=== PATIENT | female | born 1970 | race Caucasian/White ===

== ENCOUNTER → 2016-10-30 | Outpatient (CLI) | payer BC ==
[~2016-10-30] MED LIST: BACITAB3 PO; BIOT10005 PO; CALCTAB7 PO; CARD120C3 PO; COCO1000 PO; CYCL5TA PO; HYOS0.374 PO; IRON1TAB PO; MAXA10TA14 PO; PROT1TAB2 PO; RANTIDINE PO; VITA200016 PO; ZOFR20TA PO
== END ==
LOC: M LAB 10-27 14:26
PROVIDERS: ATTEND Internal Medicine Gastroenterology
DX: K58.0 Irritable bowel syndrome with diarrhea (principal)

== ENCOUNTER 2016-11-18 10:25 | Emergency (ER) | payer BC ==
--- NOTE | 2016-11-18 11:10 | EDDOCDS ---
Nurse's Notes [facility] Name: Ramona Payan Age: 46 yrs Sex: Female : 1970 Arrival Date: 11/18/2016 Time: 10:25 Bed TR1 Private MD: Carrie Davidson D Diagnosis: Left sided colitis with rectal bleeding;Enterocolitis due to Clostridium difficile Presentation: 11/18 10:31 Presenting complaint: Patient states: rectal bleeding with clots yesterday,no bleeding [facility] or today. history of sigmoid colitis, finished course of antibiotic on Tuesday for C-Diff. Adult Sepsis Screening: The patient does not have new or worsening altered mentation. Patient's respiratory rate is less than 22. Systolic blood pressure is greater than 100. Patient has a qSOFA score of 0- Negative Sepsis Screen. Suicide/Homicide risk assessment- the patient denies having any suicidal and/or homicidal ideations and does not present with any other emotional, behavioral or mental health complaints. Status: Patient is not a track service person or dependent. Transition of care: patient was not received from another setting of care. 10:31 Acuity: JENNIFER Level 3 [facility] 10:31 Method Of Arrival: Walkin/Carried/Asstd [facility] Triage Assessment: 10:39 General: Appears in no apparent distress, Behavior is appropriate for age. Pain: [facility] Location: abdomen Pain currently is 4 out of 10 on a pain scale. HIV screening NA for this visit Offered previously. Neurological: Level of Consciousness is awake, alert, Oriented to person, place, time. Respiratory: Airway is patent Respiratory effort is even, unlabored, Respiratory pattern is regular, symmetrical. GI: Reports bloody stools lower abdominal pain, upper abdominal pain, Pain is 4 out of 10 on a pain scale. Derm: Skin is pink, warm & dry. 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 Bacid 1 billion-250 cell-mg oral tab twice a day (Last dose: 11/18/2016 07:00) 2. biotin 10,000 mcg oral cap 1 tab twice a day (Last dose: 11/18/2016 07:00) 3. Calcium + Vitamin D Oral 200 mg twice a day (Last dose: 11/18/2016 07:00) 4. Colace 100 mg oral cap 1 cap once daily (Last dose: 11/18/2016 07:00) 5. cyclobenzaprine 5 mg Oral tab 1 tab 3 times per day as needed (Last dose: Unknown) 6. Excedrin Migraine 250-250-65 mg Oral tab 2 tab as needed (Last dose: Unknown) 7. Vitamin D Oral 2000 units twice a day (Last dose: 11/18/2016 07:00) 8. hyoscyamine sulfate 0.125 mg oral tab 1 tab every 6 hours as needed (Last dose: 11/17/2016) 9. ondansetron HCl 4 mg Oral tab every 4 hours as needed (Last dose: Unknown) 10. Maxalt 10 mg oral tab 1 tab as needed (Last dose: Unknown) 11. Zoloft 25 mg Oral tab 1 tab once daily (Last dose: 11/18/2016 07:00) 12. hydrocodone-acetaminophen 5-325 mg Oral tab 1 tab every 4 hours as needed (Last dose: 11/18/2016 00:30) - PMHx: GERD; Hiatal Hernia; Hypertension; IBS; Migraine Headaches; - PSHx: Colonoscopy; Endoscopy, Upper; Tubal ligation; - Social history: Smoking status: Patient states was never smoker of tobacco. No barriers to communication noted, The patient speaks fluent Azeri. - Family history: Not pertinent. - : The pt / caregiver states he / she is not on anticoagulants. Home medication list is obtained from the patient. - Exposure Risk Screening:: None identified. Recent exposure to finished antibiotic for C-Diff on Tuesday. Screenin:06 Screening information is obtained from the patient. Fall risk: No risks identified. [facility] Assistance ADL's: requires no assistance with activities of daily living. Abuse/DV Screen: The patient / caregiver reports he/she is: not in a situation that causes fear, pain or injury. Nutritional screening: No deficits noted. Advance Directives: Currently, there is no health care proxy. There is no active DNR order. There is no living will. There is no Power of Shaper And Presser. Advance directive information has not previously been placed in an [facility] medical record. Further advance directive information is declined. home support is adequate. Assessment: 11:06 General: Appears in no apparent distress, well nourished, well groomed, Behavior is kpj appropriate for age, pleasant. Pain: Location: abdomen Pain currently is 4 out of 10 on a pain scale. Neurological: Level of Consciousness is awake, alert, Oriented to person, place, time. EENT: Oral mucosa is moist. Respiratory: Airway is patent Respiratory effort is even, unlabored, Respiratory pattern is regular, symmetrical, Breath sounds are clear bilaterally. GI: Abdomen is non- distended Bowel sounds present X 4 quads. Abd is soft X 4 quads Abd is tender to palpation in right upper quadrant, left upper quadrant, right lower quadrant and left lower quadrant Reports bloody stools lower abdominal pain, upper abdominal pain, Pain is 4 out of 10 on a pain scale. Derm: Skin is pink, warm & dry. Vital Signs: 10:27 BP 159 / 84; Pulse 72; Resp 16; Temp 99.0(O); Pulse Ox 100% on R/A; Weight 88.9 kg (R); elp Height 5 ft. 2 in. (157.48 cm) (R); Pain 3/10; 10:27 Body Mass Index 35.85 (88.90 kg, 157.48 cm) elp Vitals: 10:27 Log In Time: November 18, 2016 at 10:25. elp ED Course: 10:27 Patient visited by Maria Luz Hansen PCA. elp 10:27 Carrie Davidson is Private Physician. elp 10:27 Patient moved to Waiting elp 10:28 Patient visited by Maria Luz Hansen PCA. elp 10:28 Patient moved to Pre RCE elp 10:33 Triage Initiated kpj 10:42 Patient moved to Triage 2 kpj 10:44 [facility] Breen [facility] btw 10:44 Magnolia Mendez MD is Attending Physician. btw 10:45 Patient visited by Raulito Breen PA. btw 10:58 Carrie Davidson is Referral Physician. btw 11:06 No apparent distress. kpj 11:06 Patient moved to TR1 kp 11:06 The patient / caregiver is instructed regarding the plan of care and ED course. Patient [facility] has correct armband on for positive identification. 11:06 No IV's were initiated during this patient's visit. No procedures done that require kpj assistance. Order Results: There are currently no results for this order. Outcome: 10:58 Discharge ordered by Provider. btw 11:06 Discharge Assessment: Patient awake, alert and oriented x 3. No cognitive and/or kpj functional deficits noted. Patient verbalized understanding of disposition instructions. patient administered narcotics - no. The following High Risk Discharge criteria are identified: None. Discharged to home ambulatory. Condition: stable. Discharge instructions given to patient, Instructed on discharge instructions, follow up and referral plans. medication usage, Demonstrated understanding of instructions, medications, Pt was receptive of discharge instructions/ teaching. Prescriptions given X 2. No special radiology studies were completed. Property sent home with patient. 11:09 Patient left the ED. [facility] Signatures: Steffany Patton RN RN Raulito Araujo PA PA btMaria Luz Luciano, ARABELLA BELL elp NELSON
--- NOTE | 2016-11-18 11:10 | EDDOCDS ---
Physician Documentation [facility] Name: Ramona Payan Age: 46 yrs Sex: Female : 1970 Arrival Date: 11/18/2016 Time: 10:25 Bed TR1 Private MD: Carrie Davidson D Disposition: 11/18/16 10:58 Discharged to Home/Self Care. Impression: Left sided colitis with rectal bleeding, Enterocolitis due to Clostridium difficile. - Condition is Stable. - Discharge Instructions: Clostridium Difficile Infection, Gastrointestinal Bleeding, [id number]. - Prescriptions for Medrol (Daniel) 4 mg Oral Tablets, Dose Pack - take 1 Pack by ORAL route as directed - follow package instructions; 1 packet. vancomycin 50mg/ml Oral Suspension - take 250 milligram by ORAL route 2 times per day for 2 weeks; 140 milliliter. - Medication Reconciliation, Local Pharmacy Hours form. - Follow up: Carrie Davidson; When: Call to arrange an appointment; Reason: Further diagnostic work-up, Recheck today's complaints, Continuance of care. - Problem is an ongoing problem. - Symptoms are unchanged. Historical: - Allergies: Latex (Rash, Red burning); Bupropion (Vomit); - Home Meds: 1. Bacid 1 billion-250 cell-mg oral tab twice a day (Last dose: 11/18/2016 07:00) 2. biotin 10,000 mcg oral cap 1 tab twice a day (Last dose: 11/18/2016 07:00) 3. Calcium + Vitamin D Oral 200 mg twice a day (Last dose: 11/18/2016 07:00) 4. Colace 100 mg oral cap 1 cap once daily (Last dose: 11/18/2016 07:00) 5. cyclobenzaprine 5 mg Oral tab 1 tab 3 times per day as needed (Last dose: Unknown) 6. Excedrin Migraine 250-250-65 mg Oral tab 2 tab as needed (Last dose: Unknown) 7. Vitamin D Oral 2000 units twice a day (Last dose: 11/18/2016 07:00) 8. hyoscyamine sulfate 0.125 mg oral tab 1 tab every 6 hours as needed (Last dose: 11/17/2016) 9. ondansetron HCl 4 mg Oral tab every 4 hours as needed (Last dose: Unknown) 10. Maxalt 10 mg oral tab 1 tab as needed (Last dose: Unknown) 11. Zoloft 25 mg Oral tab 1 tab once daily (Last dose: 11/18/2016 07:00) 12. hydrocodone-acetaminophen 5-325 mg Oral tab 1 tab every 4 hours as needed (Last dose: 11/18/2016 00:30) - PMHx: GERD; Hiatal Hernia; Hypertension; IBS; Migraine Headaches; - PSHx: Colonoscopy; Endoscopy, Upper; Tubal ligation; - Social history: Smoking status: Patient states was never smoker of tobacco. No barriers to communication noted, The patient speaks fluent Pakistani. - Family history: Not pertinent. - : The pt / caregiver states he / she is not on anticoagulants. Home medication list is obtained from the patient. - Exposure Risk Screening:: None identified. Recent exposure to finished antibiotic for C-Diff on Tuesday. 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 2 in. (157.48 cm) (R); Pain 3/10; 10:27 Body Mass Index 35.85 (88.90 kg, 157.48 cm) elp Signatures: Steffany Patton RN RN j Raulito Breen PA PA btw MTDD
--- NOTE | 2016-11-20 12:10 | EDDOCDS ---
Nurse's Notes [facility] Name: Ramona Payan Age: 46 yrs Sex: Female : 1970 Arrival Date: 11/18/2016 Time: 10:25 Bed TR1 Private MD: Carrie Davidson D Diagnosis: Left sided colitis with rectal bleeding;Enterocolitis due to Clostridium difficile Presentation: 11/18 10:31 Presenting complaint: Patient states: rectal bleeding with clots yesterday,no bleeding [facility] or today. history of sigmoid colitis, finished course of antibiotic on Tuesday for C-Diff. Adult Sepsis Screening: The patient does not have new or worsening altered mentation. Patient's respiratory rate is less than 22. Systolic blood pressure is greater than 100. Patient has a qSOFA score of 0- Negative Sepsis Screen. Suicide/Homicide risk assessment- the patient denies having any suicidal and/or homicidal ideations and does not present with any other emotional, behavioral or mental health complaints. Status: Patient is not a services tech or dependent. Transition of care: patient was not received from another setting of care. 10:31 Acuity: JENNIFER Level 3 [facility] 10:31 Method Of Arrival: Walkin/Carried/Asstd [facility] Triage Assessment: 10:39 General: Appears in no apparent distress, Behavior is appropriate for age. Pain: [facility] Location: abdomen Pain currently is 4 out of 10 on a pain scale. HIV screening NA for this visit Offered previously. Neurological: Level of Consciousness is awake, alert, Oriented to person, place, time. Respiratory: Airway is patent Respiratory effort is even, unlabored, Respiratory pattern is regular, symmetrical. GI: Reports bloody stools lower abdominal pain, upper abdominal pain, Pain is 4 out of 10 on a pain scale. Derm: Skin is pink, warm & dry. 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 Bacid 1 billion-250 cell-mg oral tab twice a day (Last dose: 11/18/2016 07:00) 2. biotin 10,000 mcg oral cap 1 tab twice a day (Last dose: 11/18/2016 07:00) 3. Calcium + Vitamin D Oral 200 mg twice a day (Last dose: 11/18/2016 07:00) 4. Colace 100 mg oral cap 1 cap once daily (Last dose: 11/18/2016 07:00) 5. cyclobenzaprine 5 mg Oral tab 1 tab 3 times per day as needed (Last dose: Unknown) 6. Excedrin Migraine 250-250-65 mg Oral tab 2 tab as needed (Last dose: Unknown) 7. Vitamin D Oral 2000 units twice a day (Last dose: 11/18/2016 07:00) 8. hyoscyamine sulfate 0.125 mg oral tab 1 tab every 6 hours as needed (Last dose: 11/17/2016) 9. ondansetron HCl 4 mg Oral tab every 4 hours as needed (Last dose: Unknown) 10. Maxalt 10 mg oral tab 1 tab as needed (Last dose: Unknown) 11. Zoloft 25 mg Oral tab 1 tab once daily (Last dose: 11/18/2016 07:00) 12. hydrocodone-acetaminophen 5-325 mg Oral tab 1 tab every 4 hours as needed (Last dose: 11/18/2016 00:30) - PMHx: GERD; Hiatal Hernia; Hypertension; IBS; Migraine Headaches; - PSHx: Colonoscopy; Endoscopy, Upper; Tubal ligation; - Social history: Smoking status: Patient states was never smoker of tobacco. No barriers to communication noted, The patient speaks fluent Welsh. - Family history: Not pertinent. - : The pt / caregiver states he / she is not on anticoagulants. Home medication list is obtained from the patient. - Exposure Risk Screening:: None identified. Recent exposure to finished antibiotic for C-Diff on Tuesday. Screenin:06 Screening information is obtained from the patient. Fall risk: No risks identified. [facility] Assistance ADL's: requires no assistance with activities of daily living. Abuse/DV Screen: The patient / caregiver reports he/she is: not in a situation that causes fear, pain or injury. Nutritional screening: No deficits noted. Advance Directives: Currently, there is no health care proxy. There is no active DNR order. There is no living will. There is no Power of Assistant City Attorney. Advance directive information has not previously been placed [facility] an [facility] record. Further advance directive information is declined. home support is adequate. Assessment: 11:06 General: Appears in no apparent distress, well nourished, well groomed, Behavior is kpj appropriate for age, pleasant. Pain: Location: abdomen Pain currently is 4 out of 10 on a pain scale. Neurological: Level of Consciousness is awake, alert, Oriented to person, place, time. EENT: Oral mucosa is moist. Respiratory: Airway is patent Respiratory effort is even, unlabored, Respiratory pattern is regular, symmetrical, Breath sounds are clear bilaterally. GI: Abdomen is non- distended Bowel sounds present X 4 quads. Abd is soft X 4 quads Abd is tender to palpation in right upper quadrant, left upper quadrant, right lower quadrant and left lower quadrant Reports bloody stools lower abdominal pain, upper abdominal pain, Pain is 4 out of 10 on a pain scale. Derm: Skin is pink, warm & dry. Vital Signs: 10:27 BP 159 / 84; Pulse 72; Resp 16; Temp 99.0(O); Pulse Ox 100% on R/A; Weight 88.9 kg (R); elp Height 5 ft. 2 in. (157.48 cm) (R); Pain 3/10; 10:27 Body Mass Index 35.85 (88.90 kg, 157.48 cm) elp Vitals: 10:27 Log In Time: November 18, 2016 at 10:25. elp ED Course: 10:27 Patient visited by Maria Luz Hansen PCA. elp 10:27 Carrie Davidson is Private Physician. elp 10:27 Patient moved to Waiting elp 10:28 Patient visited by Maria Luz Hansen PCA. elp 10:28 Patient moved to Pre RCE elp 10:33 Triage Initiated kpj 10:42 Patient moved to Triage 2 kpj 10:44 Raulito Breen PA is [facility]. btw 10:44 Magnolia Mendez MD is Attending Physician. btw 10:45 Patient visited by Raulito Breen PA. btw 10:58 Carrie Davidson is Referral Physician. btw 11:06 No apparent distress. kpj 11:06 Patient moved to TR1 kp 11:06 The patient / caregiver is instructed regarding the plan of care and ED course. Patient [facility] has correct armband on for positive identification. 11:06 No IV's were initiated during this patient's visit. No procedures done that require kpj assistance. 11:18 [facility] Payment Agreement was scanned into [employer] and attached to record. lg 14:43 T-Sheet-- Draft Copy was scanned into [employer] and attached to record. gb Order Results: There are currently no results for this order. Outcome: 10:58 Discharge ordered by Provider. btw 11:06 Discharge Assessment: Patient awake, alert and oriented x 3. No cognitive and/or kpj functional deficits noted. Patient verbalized understanding of disposition instructions. patient administered narcotics - no. The following High Risk Discharge criteria are identified: None. Discharged to home ambulatory. Condition: stable. Discharge instructions given to patient, Instructed on discharge instructions, follow up and referral plans. medication usage, Demonstrated understanding of instructions, medications, Pt was receptive of discharge instructions/ teaching. Prescriptions given X 2. No special radiology studies were completed. Property sent home with patient. 11:09 Patient left the ED. [facility] Signatures: Steffany Patton RN RN [facility] Soco Wang, Reg Reg gb Amy Knight, Reg Reg lg Raulito Breen PA PA btw Maria Luz Hansen, BEAN SNIPPER BEAN SNIPPER elp Chart Complete MTDD
--- NOTE | 2016-11-20 12:10 | EDDOCDS ---
Physician Documentation [facility] Name: Ramona Payan Age: 46 yrs Sex: Female : 1970 Arrival Date: 11/18/2016 Time: 10:25 Bed TR1 Private MD: Carrie Davidson D Disposition: 11/18/16 10:58 Discharged to Home/Self Care. Impression: Left sided colitis with rectal bleeding, Enterocolitis due to Clostridium difficile. - Condition is Stable. - Discharge Instructions: Clostridium Difficile Infection, Gastrointestinal Bleeding, [id number]. - Prescriptions for Medrol (Daniel) 4 mg Oral Tablets, Dose Pack - take 1 Pack by ORAL route as directed - follow package instructions; 1 packet. vancomycin 50mg/ml Oral Suspension - take 250 milligram by ORAL route 2 times per day for 2 weeks; 140 milliliter. - Medication Reconciliation, Local Pharmacy Hours form. - Follow up: Carrie Davidson; When: Call to arrange an appointment; Reason: Further diagnostic work-up, Recheck today's complaints, Continuance of care. - Problem is an ongoing problem. - Symptoms are unchanged. Historical: - Allergies: Latex (Rash, Red burning); Bupropion (Vomit); - Home Meds: 1. Bacid 1 billion-250 cell-mg oral tab twice a day (Last dose: 11/18/2016 07:00) 2. biotin 10,000 mcg oral cap 1 tab twice a day (Last dose: 11/18/2016 07:00) 3. Calcium + Vitamin D Oral 200 mg twice a day (Last dose: 11/18/2016 07:00) 4. Colace 100 mg oral cap 1 cap once daily (Last dose: 11/18/2016 07:00) 5. cyclobenzaprine 5 mg Oral tab 1 tab 3 times per day as needed (Last dose: Unknown) 6. Excedrin Migraine 250-250-65 mg Oral tab 2 tab as needed (Last dose: Unknown) 7. Vitamin D Oral 2000 units twice a day (Last dose: 11/18/2016 07:00) 8. hyoscyamine sulfate 0.125 mg oral tab 1 tab every 6 hours as needed (Last dose: 11/17/2016) 9. ondansetron HCl 4 mg Oral tab every 4 hours as needed (Last dose: Unknown) 10. Maxalt 10 mg oral tab 1 tab as needed (Last dose: Unknown) 11. Zoloft 25 mg Oral tab 1 tab once daily (Last dose: 11/18/2016 07:00) 12. hydrocodone-acetaminophen 5-325 mg Oral tab 1 tab every 4 hours as needed (Last dose: 11/18/2016 00:30) - PMHx: GERD; Hiatal Hernia; Hypertension; IBS; Migraine Headaches; - PSHx: Colonoscopy; Endoscopy, Upper; Tubal ligation; - Social history: Smoking status: Patient states was never smoker of tobacco. No barriers to communication noted, The patient speaks fluent Surinamese. - Family history: Not pertinent. - : The pt / caregiver states he / she is not on anticoagulants. Home medication list is obtained from the patient. - Exposure Risk Screening:: None identified. Recent exposure to finished antibiotic for C-Diff on Tuesday. 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 2 in. (157.48 cm) (R); Pain 3/10; 10:27 Body Mass Index 35.85 (88.90 kg, 157.48 cm) elp MDM: 11:18 [facility] Payment Agreement was scanned into [employer] and attached to record. lg 14:43 T-Sheet-- Draft Copy was scanned into [employer] and attached to record. gb Signatures: Steffany Patton RN RN [facility] Soco Wang, Reg Reg gb Amy Knight, Reg Reg lg Raulito Breen PA PA btw The chart was reviewed and I authenticate all verbal orders and agree with the evaluation and treatment provided.Attachments: 11:18 [facility] Payment Agreement lg 14:43 T-Sheet-- Draft Copy gb Chart Complete MTDD
--- NOTE | 2016-11-20 12:10 | EDDOCDS ---
Physician Documentation [facility] Name: Ramona Payan Age: 46 yrs Sex: Female : 1970 Arrival Date: 11/18/2016 Time: 10:25 Bed TR1 Private MD: Carrie Davidson D Disposition: 11/18/16 10:58 Discharged to Home/Self Care. Impression: Left sided colitis with rectal bleeding, Enterocolitis due to Clostridium difficile. - Condition is Stable. - Discharge Instructions: Clostridium Difficile Infection, Gastrointestinal Bleeding, [id number]. - Prescriptions for Medrol (Daniel) 4 mg Oral Tablets, Dose Pack - take 1 Pack by ORAL route as directed - follow package instructions; 1 packet. vancomycin 50mg/ml Oral Suspension - take 250 milligram by ORAL route 2 times per day for 2 weeks; 140 milliliter. - Medication Reconciliation, Local Pharmacy Hours form. - Follow up: Carrie Davidson; When: Call to arrange an appointment; Reason: Further diagnostic work-up, Recheck today's complaints, Continuance of care. - Problem is an ongoing problem. - Symptoms are unchanged. Historical: - Allergies: Latex (Rash, Red burning); Bupropion (Vomit); - Home Meds: 1. Bacid 1 billion-250 cell-mg oral tab twice a day (Last dose: 11/18/2016 07:00) 2. biotin 10,000 mcg oral cap 1 tab twice a day (Last dose: 11/18/2016 07:00) 3. Calcium + Vitamin D Oral 200 mg twice a day (Last dose: 11/18/2016 07:00) 4. Colace 100 mg oral cap 1 cap once daily (Last dose: 11/18/2016 07:00) 5. cyclobenzaprine 5 mg Oral tab 1 tab 3 times per day as needed (Last dose: Unknown) 6. Excedrin Migraine 250-250-65 mg Oral tab 2 tab as needed (Last dose: Unknown) 7. Vitamin D Oral 2000 units twice a day (Last dose: 11/18/2016 07:00) 8. hyoscyamine sulfate 0.125 mg oral tab 1 tab every 6 hours as needed (Last dose: 11/17/2016) 9. ondansetron HCl 4 mg Oral tab every 4 hours as needed (Last dose: Unknown) 10. Maxalt 10 mg oral tab 1 tab as needed (Last dose: Unknown) 11. Zoloft 25 mg Oral tab 1 tab once daily (Last dose: 11/18/2016 07:00) 12. hydrocodone-acetaminophen 5-325 mg Oral tab 1 tab every 4 hours as needed (Last dose: 11/18/2016 00:30) - PMHx: GERD; Hiatal Hernia; Hypertension; IBS; Migraine Headaches; - PSHx: Colonoscopy; Endoscopy, Upper; Tubal ligation; - Social history: Smoking status: Patient states was never smoker of tobacco. No barriers to communication noted, The patient speaks fluent Serbian. - Family history: Not pertinent. - : The pt / caregiver states he / she is not on anticoagulants. Home medication list is obtained from the patient. - Exposure Risk Screening:: None identified. Recent exposure to finished antibiotic for C-Diff on Tuesday. 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 2 in. (157.48 cm) (R); Pain 3/10; 10:27 Body Mass Index 35.85 (88.90 kg, 157.48 cm) elp MDM: 11:18 [facility] Payment Agreement was scanned into [employer] and attached to record. lg 14:43 T-Sheet-- Draft Copy was scanned into [employer] and attached to record. gb Signatures: Steffany Patton RN RN [facility] Soco Wang, Reg Reg gb Amy Knight, Reg Reg lg Raulito Breen PA PA btw The chart was reviewed and I authenticate all verbal orders and agree with the evaluation and treatment provided.Attachments: 11:18 [facility] Payment Agreement lg 14:43 T-Sheet-- Draft Copy gb Chart Complete MTDD
== END 2016-11-18 11:09 | disposition home or self-care (01) ==
LOC: M ED 10:25
DX: A04.7 Enterocolitis due to Clostridium difficile (principal); K62.5 Hemorrhage of anus and rectum; I10 Essential (primary) hypertension; G43.909 Migraine, unspecified, not intractable, without status migrainosus; K58.9 Irritable bowel syndrome, unspecified; K21.9 Gastro-esophageal reflux disease without esophagitis; K44.9 Diaphragmatic hernia without obstruction or gangrene; Z79.899 Other long term (current) drug therapy; Z91.040 Latex allergy status; Z88.8 Allergy status to other drugs, medicaments and biological substances

== ENCOUNTER → 2016-11-18 | Outpatient (REF) | payer BC | LOC: M LAB REF 10:24 | PROVIDERS: ATTEND Internal Medicine Gastroenterology | DX: A04.7 Enterocolitis due to Clostridium difficile (principal) ==

== ENCOUNTER → 2016-12-02 | Outpatient (CLI) | payer BC ==
[2016-12-08 00:15] LABS: DQ2(DQ1A 0501/0505,DQB1 02XX) Negative (.); DQ8(DQA1 03XX, DQB1 0302) Negative (.)
== END ==
LOC: M LAB 08:12
PROVIDERS: ATTEND Nurse Practitioner Family
DX: A04.7 Enterocolitis due to Clostridium difficile (principal); K21.9 Gastro-esophageal reflux disease without esophagitis; K58.2 Mixed irritable bowel syndrome

== ENCOUNTER → 2016-12-03 | Outpatient (REF) | payer BC | LOC: M SFHCPLAZ 13:59 | PROVIDERS: ATTEND Nurse Practitioner Family | DX: K21.9 Gastro-esophageal reflux disease without esophagitis (principal) ==

== ENCOUNTER → 2016-12-20 | Outpatient (CLI) | payer BC ==
[~2016-12-20] VITALS: Ht 157.5 cm; Wt 88.9 kg
[~2016-12-20] MED LIST changes: +DEXI60CA PO; +LIDOCAINE 2% INJ 100 MG/5 ML SDV (FOR ANES.) As Ordered ONE; +METOCLOPRAMIDE INJ 10MG/2ML VIAL (J2765) As Ordered ONE; +NS 1,000 ML IV SCH; +ONDANSETRON 4MG/2ML VIAL (J2405) As Ordered ONE; +PROPOFOL 200 MG/20 ML VIAL As Ordered ONE; +SERT25TA85 PO; +SUCR1TA PO
--- NOTE | 2016-12-20 14:20 | ROOR ---
Patient Name: Ramona Payan Procedure Date: 12/20/2016 2:05 PM Date of : 1970 Age: 46 Room: [facility] Gender: Female Note Status: Finalized Procedure: Upper GI endoscopy Indications: Heartburn, Suspected esophageal reflux, Failure to respond to medical treatment, Chest pain (non cardiac) Providers: Daniel BETHEA MD Referring MD: Carrie Davidson NP Requesting Provider: Medicines: Monitored Anesthesia Care Complications: No immediate complications. Procedure: Pre-Anesthesia Assessment: - The heart rate, respiratory rate, oxygen saturations, blood pressure, adequacy of pulmonary ventilation, and response to care were monitored throughout the procedure. The Endoscope was introduced through the mouth, and advanced to the second part of duodenum. The upper GI endoscopy was accomplished without difficulty. The patient tolerated the procedure well. Findings: The examined esophagus was normal. This was biopsied with a cold forceps for evaluation of eosinophilic esophagitis. The entire examined stomach was normal. The examined duodenum was normal. This was biopsied with a cold forceps for histology. Impression: - Normal esophagus. Biopsied. - Normal stomach. - Normal examined duodenum. Biopsied. Recommendation: - Continue present medications. - Telephone endoscopist for pathology results in 2 weeks. Daniel Bethea MD Daniel BETHEA MD 12/20/2016 2:19:58 PM This report has been signed electronically. Number of Addenda: 0 Note Initiated On: 12/20/2016 2:05 PM Estimated Blood Loss: Estimated blood loss: none.
--- NOTE | 2016-12-20 14:41 | ROOR ---
Patient Name: Ramona Payan Procedure Date: 12/20/2016 2:05 PM Date of : 1970 Age: 46 Room: [facility] Gender: Female Note Status: Finalized Procedure: Colonoscopy Indications: Abnormal CT of the GI tract, Suspected irritable bowel syndrome, Diarrhea, Hx C difficile (?colonisation vs colitis) in past. Irregular bowels persist. Abnormal CT suggestive of sigmoid coilitis, Lactoferrin in stool Providers: Daniel BETHEA MD Referring MD: Carrie Davidson NP Requesting Provider: Medicines: Monitored Anesthesia Care Complications: No immediate complications. Procedure: Pre-Anesthesia Assessment: - The heart rate, respiratory rate, oxygen saturations, blood pressure, adequacy of pulmonary ventilation, and response to care were monitored throughout the procedure. The Colonoscope was introduced through the anus and advanced to 6 cm into the ileum. The colonoscopy was performed without difficulty. The patient tolerated the procedure well. The quality of the bowel preparation was good. Findings: The perianal and digital rectal examinations were normal. The mucosa vascular pattern in the sigmoid colon was decreased. Biopsies were taken with a cold forceps for histology. The exam was otherwise normal throughout the examined colon. Biopsies for histology were taken with a cold forceps from the entire colon for evaluation of microscopic colitis. The terminal ileum appeared normal. Fluid aspiration was performed through the scope suction channel. Sample(s) were sent for Clostridium difficile. Impression: - The colon was essentially normal in appearance, there is somewhat decreased mucosa vascular pattern in the sigmoid colon (dubious significance). Biopsied. - The examined portion of the ileum was normal. - Colon fluid aspiration performed for C difficile testing - Biopsies were taken with a cold forceps from the entire colon for evaluation of microscopic colitis. Recommendation: - Await pathology results. - Telephone endoscopist for pathology results in 2 weeks. Daniel Bethea MD Daniel BETHEA MD 12/20/2016 2:40:56 PM This report has been signed electronically. Number of Addenda: 0 Note Initiated On: 12/20/2016 2:05 PM Estimated Blood Loss: Estimated blood loss: none.
[2016-12-20 15:00] VITALS: BP 125/7
== END | disposition home or self-care (01) ==
LOC: M OPP 11:12
PROVIDERS: ATTEND Internal Medicine Gastroenterology
DX: R93.3 Abnormal findings on diagnostic imaging of other parts of digestive tract (principal); R19.7 Diarrhea, unspecified; R12 Heartburn; R07.89 Other chest pain; K58.0 Irritable bowel syndrome with diarrhea; K63.89 Other specified diseases of intestine; K59.00 Constipation, unspecified; M19.012 Primary osteoarthritis, left shoulder; G47.30 Sleep apnea, unspecified; R06.83 Snoring; K21.9 Gastro-esophageal reflux disease without esophagitis; G43.909 Migraine, unspecified, not intractable, without status migrainosus; Z88.8 Allergy status to other drugs, medicaments and biological substances; Z91.040 Latex allergy status; Z79.899 Other long term (current) drug therapy; Z80.3 Family history of malignant neoplasm of breast; Z80.49 Family history of malignant neoplasm of other genital organs; Z80.8 Family history of malignant neoplasm of other organs or systems
CPT/HCPCS: 43239; 45380; 88305; 99156; 99157; J2405

== ENCOUNTER → 2016-12-21 | Outpatient (CLI) | payer BC ==
[~2016-12-21] MED LIST changes: -LIDOCAINE 2% INJ 100 MG/5 ML SDV (FOR ANES.) As Ordered ONE; -METOCLOPRAMIDE INJ 10MG/2ML VIAL (J2765) As Ordered ONE; -NS 1,000 ML IV SCH; -ONDANSETRON 4MG/2ML VIAL (J2405) As Ordered ONE; -PROPOFOL 200 MG/20 ML VIAL As Ordered ONE
--- NOTE | 2016-12-21 13:33 | REP ---
Pelvic sonography: History: Left lower quadrant pain. Central pelvic discomfort. Fibroids noted on CT. Comparison CT study dated September 18, 2016. Findings: Transabdominal and transvaginal scanning are performed. Uterine dimensions are mildly enlarged at 8.7 x 5.5 x 7.7 cm. Endometrial echo could not be localized. Instead, there are somewhat eccentrically positioned complex hypoechoic areas in the uterus, as seen surrounded by contrast enhancement on the CT study. This suggests irregular dilation of the endometrial cavity and raises a question of endometrial malignancy with secondary hydro metros. There is a Nabothian cyst seen near the cervix. There are three complex areas within the uterus. In the midline, there is a 3.9 x 4.0 x 3.3 cm area. Anteriorly there is a 1.8 x 1.2 x 1.0 cm area and to the left posteriorly there is a 2.6 x 1.9 x 2.0 cm complex hypoechoic area noted in the uterus. There is a uterine calcification noted as well 0.7 cm in greatest diameter. A normal right ovary is seen measuring 3.6 x 2.1 x 2.1 cm. The left ovary is seen measuring 3.2 x 1.6 x 1.8 cm. The left ovary is only visible transabdominally. No free fluid is seen. Impression: Irregular hypoechoic areas seen in the uterus which may be abnormal distended endometrial cavity, hydro metros. Question endometrial malignancy. Histologic sampling should be considered. A Nabothian cyst seen. Uterus is somewhat enlarged. Ovaries have an unremarkable appearance. Signed by Po Redmond MD 12/21/2016 02:02 P
== END ==
LOC: M LRY 08:18
PROVIDERS: ATTEND Nurse Practitioner Women's Health
DX: R10.32 Left lower quadrant pain (principal); N88.8 Other specified noninflammatory disorders of cervix uteri

== ENCOUNTER 2017-01-13 06:59 | Day surgery (SDC) | payer BC ==
[~2017-01-13] VITALS: Ht 157.5 cm; Wt 87.1 kg
[~2017-01-13 06:59] MED LIST changes: +SERT25TA PO; -SERT25TA85 PO
[2017-01-13] MEDS ORDERED: LR 1,000 ML IV SCH ×3 (07:15→11:00)
[2017-01-13 07:35] LABS: MEAN CORPUSCULAR HEMOGLOBIN 29.2 pg (27.0-33.0); MEAN CORPUSCULAR HGB CONC 33.5 g/dl (32.0-36.5); RED CELL DISTRIBUTION WIDTH 13.2 % (11.5-14.5); WHITE BLOOD COUNT 8.3 K/mm3 (4.0-10.0)
[2017-01-13] MEDS ORDERED: ceFAZolin 2 GM/D5W 50 ML IV BAG (J0690) As Ordered ONE (07:48)
[2017-01-13] MEDS ORDERED: HYDROmorphone HCL 2 MG/ML 1ML VIAL (J1170) As Ordered ONE (09:13)
[2017-01-13] MEDS ORDERED: PROPOFOL 200 MG/20 ML VIAL As Ordered ONE (09:13)
[2017-01-13] MEDS ORDERED: ONDANSETRON 4MG/2ML VIAL (J2405) As Ordered ONE (09:13)
[2017-01-13] MEDS ORDERED: dexameTHASONE 4 MG/ML 1ML VIAL (J1100) As Ordered ONE (09:13)
[2017-01-13] MEDS ORDERED: fentaNYL 250 MCG/5 ML INJECTION (J3010) As Ordered ONE (09:13)
[2017-01-13] MEDS ORDERED: KETOROLAC 60 MG/2 ML VIAL (J1885) As Ordered ONE (09:13)
[2017-01-13] MEDS ORDERED: LIDOCAINE 2% INJ 100 MG/5 ML SDV (FOR ANES.) As Ordered ONE (09:13)
[2017-01-13] MEDS ORDERED: MIDAZOLAM INJ 2 MG/2 ML VIAL (J2250) As Ordered ONE (09:13)
[2017-01-13] MEDS ORDERED: ROCURONIUM BROMIDE 50 MG/5 ML VIAL As Ordered ONE (09:13)
[2017-01-13] MEDS ORDERED: GLYCOPYRROLATE INJ 0.2 MG/ML 2 ML VIAL As Ordered ONE (09:14)
[2017-01-13] MEDS ORDERED: NEOSTIGMINE 1MG/ML 5 ML SYRINGE (J2710) As Ordered ONE (09:14)
[2017-01-13] MEDS ORDERED: MORPHINE 10 MG/ML 1ML VIAL As Ordered ONE (10:29)
[2017-01-13] MEDS: MORPHINE 2 MG/ML 1ML SYRINGE IV PRN ×5 (10:33→10:59)
[2017-01-13] MEDS ORDERED: NALBUPHINE HCL 10 MG/ML AMP (J2300) IV PRN (11:00)
[2017-01-13] MEDS ORDERED: EPIDURAL/PCA KEYS XX PRN (11:00)
[2017-01-13] MEDS ORDERED: fentaNYL 100 MCG/2 ML INJECTION (J3010) IV PRN (11:00)
[2017-01-13] MEDS ORDERED: diphenhydrAMINE INJ 50MG/ML VIAL (J1200) IV PRN (11:00)
[2017-01-13] MEDS ORDERED: NALOXONE INJ 0.4 MG/1 ML VIAL (J2310) IV PRN (11:00)
[2017-01-13] MEDS ORDERED: IBUPROFEN 600 MG TAB PO PRN (11:00)
[2017-01-13] MEDS ORDERED: MORPHINE PCA 1MG/ML 100ML CADD IV PRN (11:00)
[2017-01-13] MEDS ORDERED: ONDANSETRON 4MG/2ML VIAL (J2405) IV PRN (11:00)
[2017-01-13] MEDS ORDERED: RIZATRIPTAN BENZOATE 10 MG TAB PO PRN (14:30)
[2017-01-13] MEDS ORDERED: CYCLOBENZAPRINE 5MG TABLET PO PRN (14:30)
[2017-01-13] MEDS: LACTOBACILLUS ACIDOPHILUS CAP (BACID) PO SCH ×2 (16:43→20:06)
[2017-01-13] MEDS: LR 1,000 ML IV SCH ×2 (16:43→19:31)
--- NOTE | 2017-01-13 17:32 | RO ---
DATE OF PROCEDURE: 01/13/2017 PREOPERATIVE DIAGNOSIS: Pain, failed ablation, fibroids, suspected hematometra. POSTOPERATIVE DIAGNOSIS: Pain, failed ablation, fibroids, hematometra confirmed. OPERATIVE PROCEDURE: Total vaginal hysterectomy with bilateral salpingectomy. The patient retained her ovaries at her request. SURGEON: Parisa Rios MD YEAST WASHER: Dr. Finnegan ANESTHESIA: General endotracheal anesthesia. BRIEF DESCRIPTION OF PROCEDURE AND FINDINGS: Ramona was brought to the operating room where sufficient general endotracheal anesthesia was induced and she was prepped, draped and positioned in the usual sterile fashion. With a transverse circumferential incision made around the base of the cervix and sharp and blunt dissection used to isolate the cardinal ligaments, which were clamped, transected and ligated bilaterally using the CaseShankar clamps which were used throughout the case, the Supercut scissors and #0 Vicryl suture which was also used throughout. Attention was then turned to the ureterosacral ligaments, which were clamped, transected and ligated and the peritoneal reflections were opened anteriorly and posteriorly to displace the bladder and the rectum away from the field of work. We then proceeded in sequential fashion along the lateral aspect of the uterus to clamp, transect and ligate the uterine vasculature. The patient had some right fundal fibroids and a mildly distended uterus. There was no blood that passed through the cervix during the initial portion of the procedure. The level of the tubes was reached. The right tube, the proximal nub after her tubal ligation was delivered with the uterus and then similar procedure was carried out on the left side with the uterus and the attached proximal portion of the tube delivered and on the left side the tube itself had been transected and old brown blood was released. It was clearly hematometra, which was releasing through the tube, but was distended against that scarring that the patient had from her tubal ligation, certainly explaining the patient's tenderness. We then, using a sponge stick and a Benton clamp, were able to reach the fimbria and remove the fimbriated portion of the tubes bilaterally as well. The ovaries again were left in place at the patient's request. They were normal in appearance and there was no apparent injury to their blood supply. Angled stitches of #0 Vicryl were then taken. The pedicles were carefully visualized and good hemostasis confirmed. The ureterosacrals were reattached to the cuff and the cuff was closed with a running locked stitch of #0 Vicryl with good approximation and hemostasis achieved. The procedure was then ended. Estimated blood loss for the procedure about 50 mL. Fluids replaced was Crystalloid. Complications: None. CONDITION AND DISPOSITION: Ramona tolerated the procedure well and was recovering in the recovery room in good condition.
[2017-01-13] MEDS: SUCRALFATE 1 GM TAB PO SCH ×2 (18:02→20:06)
[2017-01-13] MEDS: OYSTER SHELL CALCIUM 500 MG TAB PO SCH (20:06)
[2017-01-13] MEDS: VITAMIN D 1,000 INTERNATIONAL UNITS TABLET PO SCH (20:06)
[2017-01-13 22:00] VITALS: BP 115/60
--- NOTE | 2017-01-13 22:10 | ECGEPIP ---
Stationary ECG Study [facility] Test Date: 2017-01-13 Pat Name: HAM MONET Department: Room: - Gender: F Booster Pump Oiler: NILO : 1970 Requested By: Parisa Monae Order Number: [id number] Reading MD: Toni Hills Measurements Intervals [place] Rate: 64 P: 38 SC: 183 QRS: 36 QRSD: 99 T: 46 QT: 392 QTc: 405 Interpretive Statements SINUS RHYTHM RIGHT VENTRICULAR CONDUCTION DELAY NO CHANGE 05/13/15 Electronically Signed On 01-13-2017 22:10:16 EDT by Toni Hills
[2017-01-14 02:00] VITALS: BP 136/84
[2017-01-14] MEDS: LR 1,000 ML IV SCH (03:08)
[2017-01-14 06:00] VITALS: BP 130/64
[2017-01-14] MEDS ORDERED: NORCO, ANEXSIA 5/325MG TABLET (HYDROcodone/ACETAMINOPHEN) PO PRN (06:00)
[2017-01-14 07:07] LABS: MEAN CORPUSCULAR HEMOGLOBIN 28.9 pg (27.0-33.0); MEAN CORPUSCULAR VOLUME 87.6 fl (80.0-96.0); RED CELL DISTRIBUTION WIDTH 13.5 % (11.5-14.5); WHITE BLOOD COUNT 13.3 K/mm3 (4.0-10.0)
[2017-01-14] MEDS: SUCRALFATE 1 GM TAB PO SCH (07:52)
[2017-01-14] MEDS ORDERED: SERTRALINE HCL 25 MG TABLET PO SCH (09:00)
[2017-01-14] MEDS ORDERED: NORC5TAB PO (09:39)
[2017-01-14] MEDS: LACTOBACILLUS ACIDOPHILUS CAP (BACID) PO SCH (09:42)
[2017-01-14] MEDS: VITAMIN D 1,000 INTERNATIONAL UNITS TABLET PO SCH (09:43)
[2017-01-14] MEDS: OYSTER SHELL CALCIUM 500 MG TAB PO SCH (09:43)
[2017-01-14 10:00] VITALS: BP 160/90
== END 2017-01-14 10:51 | disposition home or self-care (01) ==
LOC: M SDC 06:59 → M MS5PR 12:15 → M SDC 01-14 10:51
PROVIDERS: ATTEND Obstetrics & Gynecology
DX: R10.2 Pelvic and perineal pain (principal); D25.9 Leiomyoma of uterus, unspecified; N80.0 Endometriosis of uterus; N72 Inflammatory disease of cervix uteri; K21.9 Gastro-esophageal reflux disease without esophagitis; K44.9 Diaphragmatic hernia without obstruction or gangrene; K58.8 Other irritable bowel syndrome; Z91.040 Latex allergy status; G47.30 Sleep apnea, unspecified; Z79.899 Other long term (current) drug therapy
CPT/HCPCS: 36415; 58262; 85027; 86850; 86900; 86901; 88309; 93005; J0690; J1100; J1170; J1885; J2250; J2405; J2710; J3010

== ENCOUNTER → 2017-07-29 | Outpatient (CLI) | payer BC ==
[~2017-07-29] MED LIST changes: +BACITAB PO; -BACITAB3 PO; -BIOT10005 PO; +BIOT10008 PO; -CYCL5TA PO; +CYCL5TAB PO; -DEXI60CA PO; +DEXI60CA2 PO; +NORC1TAB4 PO
--- NOTE | 2017-07-29 13:36 | REP ---
Supine abdomen two views: Comparison is 05/13/2015. There is moderate gaseous distension of the stomach, nonspecific. There is no bowel distension or obstruction. There is abundant fecal residue throughout the colon. There are no calcifications or foreign bodies. Impression: Normal bowel gas pattern. There are surgical clips in the mid upper abdomen. Signed by Edward Mcintosh MD 07/29/2017 01:28 P
== END ==
LOC: M RAD 12:39
PROVIDERS: ATTEND Nurse Practitioner Family
DX: K58.9 Irritable bowel syndrome, unspecified (principal)

== ENCOUNTER 2017-12-19 16:19 | Outpatient (RCR) | payer BC | END 2017-12-21 | LOC: M PT 16:19 | DX: Z51.89 Encounter for other specified aftercare (principal); M25.511 Pain in right shoulder; M25.512 Pain in left shoulder | CPT/HCPCS: 97162 ==

== ENCOUNTER 2017-12-27 16:24 | Outpatient (RCR) | payer BC | END 2018-01-21 | LOC: M PT 16:24 | DX: Z51.89 Encounter for other specified aftercare (principal); M75.42 Impingement syndrome of left shoulder; M67.911 Unspecified disorder of synovium and tendon, right shoulder; M75.02 Adhesive capsulitis of left shoulder | CPT/HCPCS: 97010 ==

== ENCOUNTER → 2018-04-28 | Outpatient (REF) | payer BC | LOC: M SFHCLERA 14:10 | DX: J02.9 Acute pharyngitis, unspecified (principal) | CPT/HCPCS: 87880 ==

== ENCOUNTER → 2018-05-31 | Outpatient (REF) | payer BC ==
[2018-05-31 11:41] LABS: BASO # 0.1 10^3/uL (0.0-0.2); EOS # 0.1 10^3/uL (0.0-0.50); EOS % 1.6 % (0.0-3.0); HEMATOCRIT 43.6 % (36.0-47.0); HEMOGLOBIN 14.2 g/dl (12.0-15.5); IMMATURE GRANULOCYTE % 0.2 % (0-3.0); LYMPH % 35.9 % (24.0-44.0); MEAN CORPUSCULAR HEMOGLOBIN 29.7 pg (27.0-33.0); MEAN CORPUSCULAR HGB CONC 32.6 g/dl (32.0-36.5); MEAN CORPUSCULAR VOLUME 91.2 fl (80.0-96.0); MONO # 0.5 10^3/uL (0.0-0.8); MONO % 5.5 % (0.0-5.0); NEUTROPHILS # 4.7 10^3/uL (1.8-7.7); NEUTROPHILS % 55.8 % (36.0-66.0); PLATELET COUNT, AUTOMATED 312 10^3/uL (150-450); RED BLOOD COUNT 4.78 10^6/uL (4.00-5.40); RED CELL DISTRIBUTION WIDTH 13.2 % (11.5-14.5); WHITE BLOOD COUNT 8.4 10^3/uL (4.0-10.0)
[2018-05-31 12:01] LABS: TOTAL 25(OH) VITAMIN D 47.5 NG/ML (30.0-100.0)
[2018-05-31 12:03] LABS: ALBUMIN 3.9 GM/DL (3.2-5.2); ALBUMIN/GLOBULIN RATIO 1.11 (1.00-1.93); ALKALINE PHOSPHATASE 55 U/L (45-117); ALT/SGPT 52 U/L (12-78); ANION GAP 8 MEQ/L (8-16); AST/SGOT 30 U/L (7-37); BILIRUBIN,TOTAL 0.4 MG/DL (0.2-1.0); BLOOD UREA NITROGEN 8 MG/DL (7-18); CALCIUM LEVEL 9.4 MG/DL (8.5-10.1); CARBON DIOXIDE LEVEL 29 MEQ/L (21-32); CHLORIDE LEVEL 104 MEQ/L (98-107); CHOLESTEROL LEVEL 199 MG/DL (<200); CHOLESTEROL RISK RATIO 3.754 (<5); CREATININE FOR GFR 0.76 MG/DL (0.55-1.30); FREE T4 0.99 NG/DL (0.76-1.46); GLOMERULAR FILTRATION RATE > 60.0 (>58); GLUCOSE, FASTING 94 MG/DL (70-100); HDL CHOLESTEROL 53 MG/DL (>40); IRON (FE) 60 UG/DL (50-170); LDL CHOLESTEROL 108.8 MG/DL (<100); NON-HDL-C 146 MG/DL; POTASSIUM SERUM 4.5 MEQ/L (3.5-5.1); SODIUM LEVEL 141 MEQ/L (136-145); TOTAL PROTEIN 7.4 GM/DL (6.4-8.2); TRIGLYCERIDES LEVEL 186 MG/DL (<150)
== END ==
LOC: M SFHCCLAY 08:20
DX: K58.9 Irritable bowel syndrome, unspecified (principal); E61.1 Iron deficiency; I10 Essential (primary) hypertension; E55.9 Vitamin D deficiency, unspecified
CPT/HCPCS: 83540

== ENCOUNTER 2018-06-28 14:17 | Outpatient (RCR) | payer BC | END 2018-07-23 | LOC: M PT 14:17 | DX: Z47.89 Encounter for other orthopedic aftercare (principal); M75.42 Impingement syndrome of left shoulder | CPT/HCPCS: 97010 ==

== ENCOUNTER 2018-07-24 16:29 | Outpatient (RCR) | payer BC | END 2018-08-23 | disposition home or self-care (01) | LOC: M PT 07-26 16:28 | DX: Z47.89 Encounter for other orthopedic aftercare (principal); M75.42 Impingement syndrome of left shoulder | CPT/HCPCS: 97010 ==

== ENCOUNTER 2018-08-30 16:31 | Outpatient (RCR) | payer BC | END 2018-09-22 | LOC: M PT 16:31 | DX: M75.42 Impingement syndrome of left shoulder (principal) ==

== ENCOUNTER → 2018-10-23 | Outpatient (RCR) | payer BC ==
[~2018-10-23] MED LIST changes: -ZOFR20TA PO; +ZOFR4TAB16 PO
== END ==
LOC: M PT 09-27 16:27
PROVIDERS: ATTEND Physician Assistant Medical
DX: M75.42 Impingement syndrome of left shoulder (principal); M25.519 Pain in unspecified shoulder

== ENCOUNTER 2018-11-22 16:45 | Outpatient (RCR) | payer BC | END 2018-11-23 | LOC: M PT 16:45 | PROVIDERS: ATTEND Physician Assistant Medical | DX: Z47.89 Encounter for other orthopedic aftercare (principal); M75.42 Impingement syndrome of left shoulder ==

== ENCOUNTER 2018-12-20 16:45 | Outpatient (RCR) | payer BC | END 2018-12-21 | LOC: M PT 16:45 | PROVIDERS: ATTEND Physician Assistant Medical | DX: Z51.89 Encounter for other specified aftercare (principal); M75.42 Impingement syndrome of left shoulder ==

== ENCOUNTER → 2019-01-27 | Outpatient (CLI) | payer BC ==
[~2019-01-27] MED LIST changes: -NORC1TAB4 PO; +NORC1TAB7 PO; -SERT25TA PO; +SERT25TA85 PO
[2019-01-27 18:45] LABS: BASO # 0.1 10^3/uL (0.0-0.2); BASO % 0.6 % (0.0-1.0); EOS # 0.1 10^3/uL (0.0-0.50); EOS % 1.4 % (0.0-3.0); HEMATOCRIT 42.1 % (36.0-47.0); HEMOGLOBIN 13.4 g/dl (12.0-15.5); LYMPH # 3.1 10^3/uL (1.5-4.5); LYMPH % 32.9 % (24.0-44.0); MEAN CORPUSCULAR HEMOGLOBIN 29.6 pg (27.0-33.0); MEAN CORPUSCULAR HGB CONC 31.8 g/dl (32.0-36.5); MEAN CORPUSCULAR VOLUME 93.1 fl (80.0-96.0); MONO # 0.5 10^3/uL (0.0-0.8); MONO % 5.4 % (0.0-5.0); NEUTROPHILS # 5.6 10^3/uL (1.8-7.7); NEUTROPHILS % 59.4 % (36.0-66.0); PLATELET COUNT, AUTOMATED 311 10^3/uL (150-450); RED BLOOD COUNT 4.52 10^6/uL (4.00-5.40); WHITE BLOOD COUNT 9.5 10^3/uL (4.0-10.0)
[2019-01-27 19:03] LABS: ALBUMIN 3.6 GM/DL (3.2-5.2); ALT/SGPT 28 U/L (12-78); BILIRUBIN,TOTAL 0.3 MG/DL (0.2-1.0); BLOOD UREA NITROGEN 7 MG/DL (7-18); CALCIUM LEVEL 8.7 MG/DL (8.5-10.1); CARBON DIOXIDE LEVEL 27 MEQ/L (21-32); CHLORIDE LEVEL 106 MEQ/L (98-107); CHOLESTEROL LEVEL 168 MG/DL (<200); CHOLESTEROL RISK RATIO 3.294 (<5); CREATININE FOR GFR 0.71 MG/DL (0.55-1.30); FREE T4 0.95 NG/DL (0.76-1.46); GLOMERULAR FILTRATION RATE > 60.0 (>58); GLUCOSE, FASTING 87 MG/DL (70-100); HDL CHOLESTEROL 51 MG/DL (>40); IRON (FE) 69 UG/DL (50-170); LDL CHOLESTEROL 77 MG/DL (<100); NON-HDL-C 117 MG/DL; POTASSIUM SERUM 4.2 MEQ/L (3.5-5.1); SODIUM LEVEL 139 MEQ/L (136-145); THYROID STIMULATING HORMONE 0.767 uIU/ML (0.358-3.740); TOTAL PROTEIN 6.7 GM/DL (6.4-8.2); TRIGLYCERIDES LEVEL 201 MG/DL (<150)
== END ==
LOC: M WUC 11:24
PROVIDERS: ATTEND Nurse Practitioner Family
DX: K58.9 Irritable bowel syndrome, unspecified (principal); E61.1 Iron deficiency; I10 Essential (primary) hypertension; E55.9 Vitamin D deficiency, unspecified

== ENCOUNTER → 2019-02-09 | Outpatient (CLI) | payer BC ==
[~2019-02-09] MED LIST changes: +GASTROGRAFIN SOLUTION 30ML (Q9963) As Ordered ONE; +ISOVUE-370 76% 100ML VIAL (Q9967) As Ordered ONE
--- NOTE | 2019-02-09 17:22 | REP ---
CT of the abdomen and pelvis with IV and oral contrast: Comparison is 09/18/2016. The the patient has had an esophageal gastric fundoplication and hysterectomy. The visualized lung gandara are unremarkable. The hepatic parenchyma, gallbladder, pancreas, spleen, adrenals, kidneys and abdominal aorta are unremarkable and unchanged. There are surgical clips at the gastroesophageal junction. There is no bowel distension or obstruction. There is diastases of the rectus abdominus measuring 6.4 cm. There is no hernia. The mesentery is unremarkable. Pelvis: The appendix is unremarkable. There is a hysterectomy. The adnexa are unremarkable. There is no adenopathy or ascites. The pelvic bowel loops are unremarkable. The bladder is incompletely distended but otherwise unremarkable. There is lumbar degenerative disc disease at L5 S1. This is unchanged. Impression: Diastases of the rectus abdominus as described. There is no hernia. Hysterectomy. Otherwise, essentially negative CT of the abdomen and pelvis. Electronically Signed by Edward Mcintosh MD 02/09/2019 05:14 P
== END ==
LOC: M RAD 15:02
PROVIDERS: ATTEND Nurse Practitioner Family
DX: M62.08 Separation of muscle (nontraumatic), other site (principal); Z87.19 Personal history of other diseases of the digestive system; Z90.79 Acquired absence of other genital organ(s)
CPT/HCPCS: 74177; Q9963; Q9967

== ENCOUNTER 2019-03-06 16:00 | Outpatient (RCR) | payer BC ==
[~2019-03-06 16:00] MED LIST changes: -GASTROGRAFIN SOLUTION 30ML (Q9963) As Ordered ONE; -ISOVUE-370 76% 100ML VIAL (Q9967) As Ordered ONE
== END 2019-03-23 ==
LOC: M PT 16:00
PROVIDERS: ATTEND Nurse Practitioner Family
DX: M62.08 Separation of muscle (nontraumatic), other site (principal)

== ENCOUNTER → 2019-07-28 | Outpatient (CLI) | payer BC ==
[2019-07-28 18:11] LABS: BASO # 0.1 10^3/uL (0.0-0.2); BASO % 0.8 % (0.0-1.0); EOS # 0.1 10^3/uL (0.0-0.5); EOS % 1.6 % (0.0-3.0); HEMOGLOBIN 13.1 g/dl (12.0-15.5); LYMPH # 3.1 10^3/uL (1.5-5.0); LYMPH % 34.6 % (24.0-44.0); MEAN CORPUSCULAR HGB CONC 31.2 g/dl (32.0-36.5); MEAN CORPUSCULAR VOLUME 93.1 fl (80.0-96.0); MONO # 0.5 10^3/uL (0.0-0.8); MONO % 5.7 % (0.0-5.0); NEUTROPHILS % 57.2 % (36.0-66.0); PLATELET COUNT, AUTOMATED 325 10^3/uL (150-450); RED BLOOD COUNT 4.51 10^6/uL (4.00-5.40); WHITE BLOOD COUNT 8.8 10^3/uL (4.0-10.0)
[2019-07-28 18:22] LABS: ALBUMIN 3.7 GM/DL (3.2-5.2); ALT/SGPT 42 U/L (12-78); BILIRUBIN,TOTAL 0.4 MG/DL (0.2-1.0); BLOOD UREA NITROGEN 8 MG/DL (7-18); CALCIUM LEVEL 8.4 MG/DL (8.5-10.1); CARBON DIOXIDE LEVEL 28 MEQ/L (21-32); CHLORIDE LEVEL 105 MEQ/L (98-107); CHOLESTEROL LEVEL 158 MG/DL (<200); CHOLESTEROL RISK RATIO 3.361 (<5); CREATININE FOR GFR 0.83 MG/DL (0.55-1.30); FREE T4 0.92 NG/DL (0.76-1.46); GLOMERULAR FILTRATION RATE > 60.0 (>58); GLUCOSE, FASTING 95 MG/DL (70-100); HDL CHOLESTEROL 47 MG/DL (>40); IRON (FE) 73 UG/DL (50-170); LDL CHOLESTEROL 76 MG/DL (<100); NON-HDL-C 111 MG/DL; POTASSIUM SERUM 4.4 MEQ/L (3.5-5.1); SODIUM LEVEL 140 MEQ/L (136-145); THYROID STIMULATING HORMONE 0.855 uIU/ML (0.358-3.740); TOTAL PROTEIN 6.9 GM/DL (6.4-8.2); TRIGLYCERIDES LEVEL 177 MG/DL (<150)
[2019-07-30 11:31] LABS: TOTAL 25(OH) VITAMIN D 70.1 NG/ML (30.0-100.0)
== END ==
LOC: M WUC 09:32
PROVIDERS: ATTEND Nurse Practitioner Family
DX: K21.9 Gastro-esophageal reflux disease without esophagitis (principal); E55.9 Vitamin D deficiency, unspecified; I10 Essential (primary) hypertension; E61.1 Iron deficiency

== ENCOUNTER → 2020-04-17 | Outpatient (CLI) | payer BC ==
[~2020-04-17] MED LIST changes: +GASTROGRAFIN SOLUTION 30ML (Q9963) As Ordered ONE; +ISOVUE-370 76% 100ML VIAL As Ordered ONE
--- NOTE | 2020-04-17 17:12 | REP ---
CT ABDOMEN WITH IV AND ORAL CONTRAST: HISTORY: Diastases recti. CT CONTRAST DOSE: 100 mL of intravenous Isovue 370. Comparison CT study February 09, 2019. CT FINDINGS: Preliminary digital district scout executive radiograph demonstrates an unremarkable bowel gas pattern. The lung bases are clear on axial CT images. There is diffuse fatty infiltration of the liver moderate in degree. There is some fat sparing in the liver parenchyma near the gallbladder and juaquin. No focal hepatic or splenic mass lesion is seen. Normal adrenal glands are seen. No abnormalities noted in the pancreas. The gallbladder is unremarkable. The kidneys enhance symmetrically and are morphologically intact. Normal caliber aorta. No retroperitoneal mass or adenopathy is seen. Normal appendix is seen retrocecal. Small and large intestinal bowel loops are normal in appearance. There is mild diastases of the rectus abdominis muscles but no sabrian ventral hernia is appreciated. The anterior abdominal wall is unchanged when compared with prior study of February 09, 2019. No bony abnormality is seen. IMPRESSION: Fatty infiltration of the liver. Mild diastases of the rectus abdominis muscles. Vertical clips in the upper abdomen medial to the GE junction. No acute abnormality. Electronically Signed by Po Redmond MD 04/18/2020 06:49 A
== END ==
LOC: M RAD 14:16
PROVIDERS: ATTEND Nurse Practitioner Family
DX: M62.08 Separation of muscle (nontraumatic), other site (principal); K76.0 Fatty (change of) liver, not elsewhere classified
CPT/HCPCS: 74160; Q9963; Q9967

== ENCOUNTER → 2020-07-16 | Outpatient (CLI) | payer BC ==
[~2020-07-16] MED LIST changes: +CALC-211 PO; -CALCTAB7 PO; -GASTROGRAFIN SOLUTION 30ML (Q9963) As Ordered ONE; -ISOVUE-370 76% 100ML VIAL As Ordered ONE
--- NOTE | 2020-07-23 11:53 | REP ---
NUCLEAR GASTRIC EMPTYING SCAN HISTORY: Gastroparesis and fullness. TECHNIQUE: Following the oral administration of 1.1 mCi Technetium-99m sulfur colloid and two scrambled eggs and 6 ounces of water, multiple images of the upper abdomen are performed in the anterior and posterior projections. Gastric activity is measured. At the end of 90 minutes, 53% of the ingested activity has emptied from the stomach. This yields a T1/2 of 89 minutes, which is normal. IMPRESSION: Normal gastric emptying time. MTDD
== END ==
LOC: M RAD 07:15
PROVIDERS: ATTEND Physician Assistant Surgical
DX: R14.0 Abdominal distension (gaseous) (principal)
CPT/HCPCS: 78264; A9541

== ENCOUNTER → 2020-09-03 | Outpatient (CLI) | payer BC ==
[2020-09-03 10:27] LABS: BASO # 0.1 10^3/uL (0.0-0.2); BASO % 0.9 % (0.0-1.0); EOS # 0.2 10^3/uL (0.0-0.5); EOS % 1.9 % (0.0-3.0); HEMATOCRIT 42.4 % (36.0-47.0); HEMOGLOBIN 13.1 g/dl (12.0-15.5); LYMPH # 3.3 10^3/uL (1.5-5.0); LYMPH % 41.3 % (24.0-44.0); MEAN CORPUSCULAR HGB CONC 30.9 g/dl (32.0-36.5); MEAN CORPUSCULAR VOLUME 87.2 fl (80.0-96.0); MONO # 0.4 10^3/uL (0.0-0.8); MONO % 5.2 % (0.0-5.0); NEUTROPHILS % 50.4 % (36.0-66.0); PLATELET COUNT, AUTOMATED 310 10^3/uL (150-450); RED BLOOD COUNT 4.86 10^6/uL (4.00-5.40); WHITE BLOOD COUNT 7.9 10^3/uL (4.0-10.0)
[2020-09-03 11:14] LABS: ALBUMIN 3.7 GM/DL (3.2-5.2); ALT/SGPT 38 U/L (12-78); BILIRUBIN,TOTAL 0.3 MG/DL (0.2-1.0); BLOOD UREA NITROGEN 8 MG/DL (7-18); CALCIUM LEVEL 8.9 MG/DL (8.5-10.1); CARBON DIOXIDE LEVEL 29 MEQ/L (21-32); CHLORIDE LEVEL 105 MEQ/L (98-107); CHOLESTEROL LEVEL 150 MG/DL (<200); CREATININE FOR GFR 0.83 MG/DL (0.55-1.30); FREE T4 0.86 NG/DL (0.76-1.46); GLOMERULAR FILTRATION RATE > 60.0 (>51); GLUCOSE, FASTING 90 MG/DL (70-100); HDL CHOLESTEROL 50 MG/DL (>40); IRON (FE) 53 UG/DL (50-170); LDL CHOLESTEROL 73 MG/DL (<100); NON-HDL-C 100 MG/DL; POTASSIUM SERUM 4.3 MEQ/L (3.5-5.1); SODIUM LEVEL 140 MEQ/L (136-145); THYROID STIMULATING HORMONE 0.988 uIU/ML (0.358-3.740); TOTAL 25(OH) VITAMIN D 55.2 NG/ML (30.0-100.0); TOTAL PROTEIN 6.9 GM/DL (6.4-8.2); TRIGLYCERIDES LEVEL 133 MG/DL (<150)
== END ==
LOC: M WUC 08:27
PROVIDERS: ATTEND Nurse Practitioner Family
DX: K21.9 Gastro-esophageal reflux disease without esophagitis (principal); I10 Essential (primary) hypertension; E55.9 Vitamin D deficiency, unspecified; E61.1 Iron deficiency

== ENCOUNTER 2020-12-30 06:33 | Emergency (ER) | payer BC ==
[~2020-12-30] VITALS: Ht 157.5 cm; Wt 95.5 kg
[2020-12-30] MEDS ORDERED: ACET-897 PO (07:03)
[2020-12-30] MEDS ORDERED: ACETAMINOPHEN 500 MG TAB PO ONE (07:05)
[2020-12-30] MEDS ORDERED: NS 1,000 ML IV ONE (07:05)
[2020-12-30] MEDS ORDERED: ONDANSETRON 4MG/2ML VIAL IV ONE (07:15)
[2020-12-30] MEDS ORDERED: MECLIZINE 25 MG TABLET PO ONE (07:15)
--- NOTE | 2020-12-30 07:21 | REPVR ---
PROCEDURE INFORMATION: Exam: CT Head Without Contrast Exam date and time: 12/30/2020 7:09 AM Age: 50 years old Clinical indication: Pain; Headache not specified; Additional info: Headache, dizziness TECHNIQUE: Imaging protocol: Computed tomography of the head without contrast. Radiation optimization: All CT scans at this facility use at least one of these dose optimization techniques: automated exposure control; mA and/or kV adjustment per patient size (includes targeted exams where dose is matched to clinical indication); or iterative reconstruction. COMPARISON: CT Head without contrast 10/29/2015 6:12 AM FINDINGS: Brain: Normal. No hemorrhage. Unremarkable white matter. No mass effect. Cerebral ventricles: No ventriculomegaly. Bones/joints: Unremarkable. No acute fracture. Paranasal sinuses: Visualized sinuses are unremarkable. No fluid levels. Mastoid air cells: Visualized mastoid air cells are well aerated. Soft tissues: Unremarkable. IMPRESSION: No acute intracranial abnormality. Electronically signed by: Jamila Sarabia On 12/30/2020 07:22:32 AM
--- NOTE | 2020-12-30 07:21 | ECGEPIP ---
[facility] - ED Test Date: 2020-12-30 Pat Name: HAM MONET Department: Room: - Gender: Female Rotary Adjuster: ivan : 1970 Requested By: LAVON Gee Order Number: [id number] Reading MD: Godfrey Pardo Measurements Intervals [place] Rate: 82 P: 35 ME: 180 QRS: 13 QRSD: 78 T: 45 QT: 356 QTc: 415 Interpretive Statements Normal sinus rhythm BASELINE ARTIFACT AFFECTS INTERPRETATION SIMILAR TO 01/13/17 Electronically Signed on 12-30-2020 7:21:21 EST by Godfrey Pardo
[2020-12-30 07:43] LABS: BASO % 0.5 % (0.0-1.0); EOS # 0.1 10^3/uL (0.0-0.5); EOS % 0.8 % (0.0-3.0); HEMATOCRIT 44.9 % (36.0-47.0); HEMOGLOBIN 14.3 g/dl (12.0-15.5); LYMPH # 1.7 10^3/uL (1.5-5.0); LYMPH % 22.3 % (24.0-44.0); MEAN CORPUSCULAR HEMOGLOBIN 27.7 pg (27.0-33.0); MEAN CORPUSCULAR HGB CONC 31.8 g/dl (32.0-36.5); MONO # 0.3 10^3/uL (0.0-0.8); MONO % 4.3 % (2.0-8.0); NEUTROPHILS # 5.3 10^3/uL (1.5-8.5); NEUTROPHILS % 71.8 % (36.0-66.0); PLATELET COUNT, AUTOMATED 304 10^3/uL (150-450); RED BLOOD COUNT 5.16 10^6/uL (4.00-5.40); WHITE BLOOD COUNT 7.4 10^3/uL (4.0-10.0)
[2020-12-30 08:23] LABS: ALBUMIN 3.9 GM/DL (3.2-5.2); ALT/SGPT 52 U/L (12-78); BILIRUBIN,TOTAL 0.3 MG/DL (0.2-1.0); BLOOD UREA NITROGEN 9 MG/DL (7-18); CALCIUM LEVEL 9.1 MG/DL (8.5-10.1); CARBON DIOXIDE LEVEL 26 MEQ/L (21-32); CHLORIDE LEVEL 105 MEQ/L (98-107); CK-MB VALUE MASS < 1.0 NG/ML (<3.6); CPK CREATINE PHOSPHOKINASE 58 U/L (26-192); CREATININE FOR GFR 0.95 MG/DL (0.55-1.30); FREE T4 0.88 NG/DL (0.76-1.46); GLOMERULAR FILTRATION RATE > 60.0 (>51); GLUCOSE, FASTING 135 MG/DL (70-100); MB/CK RELATIVE INDEX 1.72 (< OR =4); SODIUM LEVEL 139 MEQ/L (136-145); THYROID STIMULATING HORMONE 0.795 uIU/ML (0.358-3.740); TOTAL PROTEIN 7.6 GM/DL (6.4-8.2); TROPONIN I < 0.02 NG/ML (< 0.10)
[2020-12-30 10:10] LABS: VITAMIN B12 LEVEL 1535 PG/ML (247-911)
[2020-12-30 10:12] LABS: FOLATE > 24.0 NG/ML (>5.4)
[2020-12-30 11:26] LABS: APPEARANCE, URINE HAZY (CLEAR); BACTERIA, URINE AUTO 1+ (NEGATIVE); BILIRUBIN, URINE AUTO NEGATIVE (NEGATIVE); BLOOD, URINE BLOOD NEGATIVE (NEGATIVE); COLOR, URINE YELLOW (YELLOW); GLUCOSE, URINE (UA) AUTO NEGATIVE (NEGATIVE); KETONE, URINE AUTO NEGATIVE (NEGATIVE); LEUKOCYTE ESTERASE, URINE AUTO TRACE (NEGATIVE); MUCUS, URINE SMALL (NEGATIVE); NITRITE, URINE AUTO NEGATIVE (NEGATIVE); PROTEIN, URINE AUTO NEGATIVE (NEGATIVE); RBC, URINE AUTO 1 /HPF (0-3); SPECIFIC GRAVITY URINE AUTO 1.008 (1.002-1.035); SQUAMOUS EPITHELIAL CELL UR AU 4 /HPF (0-6); UROBILINOGEN, URINE AUTO 0.2 mg/dL (0.0-2.0); WBC, URINE AUTO 1 /HPF (0-3)
[2020-12-30] MEDS ORDERED: [UNRECOGNIZED DRUG - REMARK] (11:36)
[2020-12-30] MEDS ORDERED: diazePAM 10MG/2ML SYRINGE (J3360 PER 5MG) IV ONE (11:55)
--- NOTE | 2020-12-30 13:01 | REP ---
INDICATION: dizziness. COMPARISON: Comparison is made with today's earlier CT study of the brain.. TECHNIQUE: Axial and sagittal imaging planes are utilized for T1 and T2-weighted scans. Sequences include spin-echo, fast spin echo, FLAIR, and diffusion weighted sequences. FINDINGS: No bony calvarial lesion is seen. Craniocervical junction and upper cervical cord are normal in appearance. There is no MR evidence of significant paranasal sinus disease. No intraorbital abnormality is seen. The lateral, third, and fourth ventricles are normal in size and position. Garnica-white differentiation pattern is intact above and below the tentorium. There is no evidence of intracranial hemorrhage. No mass, infarction, extra-axial fluid collection or midline shift is seen. No abnormal white matter lesion is seen. IMPRESSION: Negative noncontrast brain MRI study. <Electronically signed by Adrián Redmond > 12/30/20 [id number]
--- NOTE | 2020-12-30 13:04 | REP ---
INDICATION: dizziness. COMPARISON: None. TECHNIQUE: 3-D [id number] MR angiography of the brain is acquired in the usual fashion and maximal intensity projection images were generated in rotational format about the vertical and horizontal axes. In addition, source axial T1-weighted images are viewed in cine mode. FINDINGS: The distal vertebral arteries are patent, left is larger than right.. Basilar artery is a little tortuous but widely patent. The posterior cerebral and superior cerebellar vessels are normal and symmetric. The left posterior cerebral artery takes a persistent origin from the anterior circulation. This is a common normal variant. The distal internal carotid arteries are unremarkable. Anterior and middle cerebral arteries appear intact. There is no visible anderson aneurysm or arteriovenous malformation. IMPRESSION: Unremarkable MR angiography the brain. <Electronically signed by Adrián Redmond > 12/30/20 1300
[2020-12-30] MEDS ORDERED: MECL1TAB31 PO (13:18)
[2020-12-30] MEDS ORDERED: PRED20TA PO (13:20)
[2020-12-30 14:30] VITALS: BP 150/78
== END 2020-12-30 14:33 | disposition home or self-care (01) ==
LOC: M ED 06:33
DX: H93.13 Tinnitus, bilateral (principal); R42 Dizziness and giddiness; R11.0 Nausea; R51.9 Headache, unspecified; I10 Essential (primary) hypertension; E78.5 Hyperlipidemia, unspecified; K21.9 Gastro-esophageal reflux disease without esophagitis; E55.9 Vitamin D deficiency, unspecified; F33.9 Major depressive disorder, recurrent, unspecified; Z88.8 Allergy status to other drugs, medicaments and biological substances; Z91.040 Latex allergy status; Z79.899 Other long term (current) drug therapy
CPT/HCPCS: 70450; 70544; 70551; 80053; 81001; 82550; 82553; 82607; 82746; 84439; 84443; 84484; 85025; 87088; 87186; 93005; 93041; 96361; 96374; 96375; 97112; 97162; 97530; 99285; J2405; J3360

== ENCOUNTER 2021-01-07 07:36 | Outpatient (RCR) | payer BC ==
[~2021-01-07 07:36] MED LIST changes: +ACET-897 PO; +MECL1TAB31 PO; +PRED20TA PO; +[UNRECOGNIZED DRUG - REMARK]
== END 2021-01-21 ==
LOC: M PT 07:36
PROVIDERS: ATTEND Nurse Practitioner Family
DX: H81.10 Benign paroxysmal vertigo, unspecified ear (principal)

== ENCOUNTER → 2021-01-26 | Outpatient (CLI) | payer BC ==
[2021-01-26 10:16] LABS: HEMOGLOBIN A1c 5.6 %
== END ==
LOC: M WUC 08:40
PROVIDERS: ATTEND Surgery
DX: Z86.39 Personal history of other endocrine, nutritional and metabolic disease (principal)

== ENCOUNTER → 2021-02-09 | Outpatient (CLI) | payer BC ==
[~2021-02-09] MED LIST changes: +D31000TA2 PO; +ESTR1TD TD; +LINZ290C PO; +MAGN200T PO; +OYST500T25 PO; +RIZA10TA58 PO; +SIME80CH5 PO; +VITA-243 PO; +VITMTA PO
== END ==
LOC: M LABSMTC 10:21
PROVIDERS: ATTEND Anesthesiology
DX: Z01.812 Encounter for preprocedural laboratory examination (principal); Z20.822 Contact with and (suspected) exposure to COVID-19

== ENCOUNTER 2021-02-13 11:39 | Day surgery (SDC) | payer BC ==
[~2021-02-13] VITALS: Ht 157.5 cm; Wt 94.3 kg
[~2021-02-13 11:39] MED LIST changes: +NS 1,000 ML IV ONE
[2021-02-13] MEDS ORDERED: LIDOCAINE 2% 100MG/5ML SDV (FOR ANES.) As Ordered ONE (12:02)
[2021-02-13] MEDS ORDERED: propofoL 200 MG/20 ML VIAL As Ordered ONE (12:02)
[2021-02-13] MEDS ORDERED: fentaNYL 100 MCG/2 ML INJECTION (J3010) As Ordered ONE (12:02)
--- NOTE | 2021-02-13 13:03 | ROOR ---
Patient Name: Ramona Payan Procedure Date: 02/13/2021 12:28 PM Date of : 1970 Age: 50 Room: [facility] Gender: Female Note Status: Finalized Procedure: Upper GI endoscopy Indications: Generalized abdominal pain, Preoperative assessment for bariatric surgery to treat morbid obesity (considering) Providers: Daniel BETHEA MD Referring MD: Carrie Davidson NP, LORENZO KING ([facility])MD Requesting Provider: Medicines: Monitored Anesthesia Care Complications: No immediate complications. Procedure: Pre-Anesthesia Assessment: - The heart rate, respiratory rate, oxygen saturations, blood pressure, adequacy of pulmonary ventilation, and response to care were monitored throughout the procedure. The Endoscope was introduced through the mouth, and advanced to the second part of duodenum. The upper GI endoscopy was accomplished without difficulty. The patient tolerated the procedure well. Findings: Evidence of a fundoplication was found in the cardia. The wrap appeared intact. The entire examined stomach was normal. Biopsies were taken with a cold forceps for histology. The examined esophagus was normal. Biopsies were taken with a cold forceps for histology. The examined duodenum was normal. Biopsies were taken with a cold forceps for histology. Impression: - Normal stomach. Biopsied. - A fundoplication was found. The wrap appears intact. - Normal esophagus. Biopsied. - Normal examined duodenum. Biopsied. Recommendation: - Observe patient's clinical course. - Continue present medications. Procedure Code(s): --- Professional --- 96686, Esophagogastroduodenoscopy, flexible, transoral; with biopsy, single or multiple Diagnosis Code(s): --- Professional --- E66.01, Morbid (severe) obesity due to excess calories Z01.818, Encounter for other preprocedural examination R10.84, Generalized abdominal pain Z98.890, Other specified postprocedural states CPT copyright 2019 [employer]. All rights reserved. The codes documented in this report are preliminary and upon guitar technician review may be revised to meet current compliance requirements. aDniel Bethea MD Daniel BETHEA MD 02/13/2021 1:02:38 PM Electronically signed by Daniel BETHEA MD Number of Addenda: 0 Note Initiated On: 02/13/2021 12:28 PM Estimated Blood Loss: Estimated blood loss: none.
--- NOTE | 2021-02-13 13:07 | ROOR ---
Patient Name: Ramona Payan Procedure Date: 02/13/2021 12:29 PM Date of : 1970 Age: 50 Room: [facility] Gender: Female Note Status: Finalized Procedure: Colonoscopy Indications: Change in bowel habits, Constipation Providers: Daniel BETHEA MD Referring MD: Carrie Davidson NP, LORENZO KING ([facility])MD Requesting Provider: Medicines: Monitored Anesthesia Care Complications: No immediate complications. Procedure: Pre-Anesthesia Assessment: - The heart rate, respiratory rate, oxygen saturations, blood pressure, adequacy of pulmonary ventilation, and response to care were monitored throughout the procedure. The Colonoscope was introduced through the anus and advanced to 10 cm into the ileum. The colonoscopy was performed without difficulty. The patient tolerated the procedure well. The quality of the bowel preparation was good. Findings: The perianal and digital rectal examinations were normal. The colon (entire examined portion) appeared normal. The terminal ileum appeared normal. Small Internal Hemorrhoids. Impression: - Small Internal Hemorrhoids. - The colon is normal. - The examined portion of the ileum was normal. - No specimens collected. Recommendation: - Use fiber, for example Citrucel, Fibercon, Konsyl or Metamucil. - Continue present medications. Procedure Code(s): --- Professional --- 60479, Colonoscopy, flexible; diagnostic, including collection of specimen(s) by brushing or washing, when performed (separate procedure) Diagnosis Code(s): --- Professional --- K59.00, Constipation, unspecified R19.4, Change in bowel habit CPT copyright 2019 [employer]. All rights reserved. The codes documented in this report are preliminary and upon surveillance director review may be revised to meet current compliance requirements. Daniel Bethea MD Daniel BETHEA MD 02/13/2021 1:06:43 PM Electronically signed by Daniel BETHEA MD Number of Addenda: 0 Note Initiated On: 02/13/2021 12:29 PM Estimated Blood Loss: Estimated blood loss: none.
[2021-02-13 13:25] VITALS: BP 132/77
== END 2021-02-13 13:30 | disposition home or self-care (01) ==
LOC: M OPP 11:39
PROVIDERS: ATTEND Internal Medicine Gastroenterology
DX: Z01.818 Encounter for other preprocedural examination (principal); K59.00 Constipation, unspecified; K64.8 Other hemorrhoids; R10.84 Generalized abdominal pain; E66.01 Morbid (severe) obesity due to excess calories; Z79.899 Other long term (current) drug therapy; Z88.8 Allergy status to other drugs, medicaments and biological substances; Z91.040 Latex allergy status
CPT/HCPCS: 43239; 45378; 88305; J3010

== ENCOUNTER → 2021-03-24 | Outpatient (CLI) | payer BC ==
[~2021-03-24] MED LIST changes: -NS 1,000 ML IV ONE
[2021-03-24 13:18] LABS: BLOOD UREA NITROGEN 8 MG/DL (7-18); CALCIUM LEVEL 9.4 MG/DL (8.5-10.1); CARBON DIOXIDE LEVEL 28 MEQ/L (21-32); CHLORIDE LEVEL 104 MEQ/L (98-107); CREATININE FOR GFR 0.79 MG/DL (0.55-1.30); GLOMERULAR FILTRATION RATE > 60.0 (>51); GLUCOSE, FASTING 110 MG/DL (70-100); MAGNESIUM LEVEL 2.2 MG/DL (1.8-2.4); SODIUM LEVEL 139 MEQ/L (136-145)
== END ==
LOC: M WUC 09:30
PROVIDERS: ATTEND Nurse Practitioner Family
DX: R60.9 Edema, unspecified (principal)

== ENCOUNTER → 2021-10-15 | Outpatient (CLI) | payer BC | LOC: M WHC 11:18 | PROVIDERS: ATTEND Nurse Practitioner Family | DX: Z12.31 Encounter for screening mammogram for malignant neoplasm of breast (principal) ==

== ENCOUNTER → 2021-10-15 | Outpatient (CLI) | payer BC ==
[2021-10-15 11:42] LABS: BASO # 0.1 10^3/uL (0.0-0.2); BASO % 0.8 % (0.0-1.0); EOS # 0.1 10^3/uL (0.0-0.5); EOS % 1.4 % (0.0-3.0); HEMATOCRIT 43.9 % (36.0-47.0); HEMOGLOBIN 14.1 g/dl (12.0-15.5); LYMPH # 3.7 10^3/uL (1.5-5.0); LYMPH % 39.2 % (24.0-44.0); MEAN CORPUSCULAR HEMOGLOBIN 29.1 pg (27.0-33.0); MEAN CORPUSCULAR HGB CONC 32.1 g/dl (32.0-36.5); MEAN CORPUSCULAR VOLUME 90.7 fl (80.0-96.0); MONO # 0.5 10^3/uL (0.0-0.8); NEUTROPHILS % 53.3 % (36.0-66.0); PLATELET COUNT, AUTOMATED 349 10^3/uL (150-450); RED BLOOD COUNT 4.84 10^6/uL (4.00-5.40); WHITE BLOOD COUNT 9.3 10^3/uL (4.0-10.0)
[2021-10-15 12:05] LABS: HEMOGLOBIN A1c 5.5 %
[2021-10-15 12:19] LABS: ALBUMIN 3.8 GM/DL (3.2-5.2); ALT/SGPT 45 U/L (12-78); BILIRUBIN,TOTAL 0.4 MG/DL (0.2-1.0); BLOOD UREA NITROGEN 9 MG/DL (7-18); CARBON DIOXIDE LEVEL 29 MEQ/L (21-32); CHLORIDE LEVEL 102 MEQ/L (98-107); CHOLESTEROL LEVEL 162 MG/DL (<200); CHOLESTEROL RISK RATIO 3.115 (<5); CREATININE FOR GFR 0.76 MG/DL (0.55-1.30); FREE T4 0.96 NG/DL (0.76-1.46); GLOMERULAR FILTRATION RATE > 60.0 (>51); GLUCOSE, FASTING 97 MG/DL (70-100); HDL CHOLESTEROL 52 MG/DL (>40); LDL CHOLESTEROL 85 MG/DL (<100); NON-HDL-C 110 MG/DL; POTASSIUM SERUM 3.9 MEQ/L (3.5-5.1); SODIUM LEVEL 138 MEQ/L (136-145); THYROID STIMULATING HORMONE 0.711 uIU/ML (0.358-3.740); TOTAL PROTEIN 7.4 GM/DL (6.4-8.2); TRIGLYCERIDES LEVEL 124 MG/DL (<150)
== END ==
LOC: M WUC 09:58
PROVIDERS: ATTEND Nurse Practitioner Family
DX: R60.9 Edema, unspecified (principal); K58.9 Irritable bowel syndrome, unspecified; M62.08 Separation of muscle (nontraumatic), other site; K21.9 Gastro-esophageal reflux disease without esophagitis; I10 Essential (primary) hypertension; E61.1 Iron deficiency; Z78.0 Asymptomatic menopausal state; L71.9 Rosacea, unspecified; E55.9 Vitamin D deficiency, unspecified; G44.209 Tension-type headache, unspecified, not intractable; M54.2 Cervicalgia

== ENCOUNTER → 2022-01-26 | Outpatient (CLI) | payer BC ==
[~2022-01-26] MED LIST changes: +CALC-175 PO; -D31000TA2 PO; -OYST500T25 PO; +VITA100093 PO
== END ==
LOC: M PLAIMG 14:42
PROVIDERS: ATTEND Nurse Practitioner Family
DX: M47.22 Other spondylosis with radiculopathy, cervical region (principal)

== ENCOUNTER → 2022-02-05 | Outpatient (REF) | payer BC | LOC: M SFHCDERM 10:24 | PROVIDERS: ATTEND Nurse Practitioner Family | DX: C44.321 Squamous cell carcinoma of skin of nose (principal) ==

== ENCOUNTER → 2022-04-27 | Outpatient (CLI) | payer BC ==
[2022-04-27 14:43] LABS: BASO # 0.1 10^3/uL (0.0-0.2); BASO % 1.3 % (0.0-1.0); EOS # 0.2 10^3/uL (0.0-0.5); EOS % 4.3 % (0.0-3.0); HEMOGLOBIN 11.7 g/dl (12.0-15.5); LYMPH # 1.5 10^3/uL (1.5-5.0); LYMPH % 27.2 % (24.0-44.0); MEAN CORPUSCULAR HEMOGLOBIN 25.7 pg (27.0-33.0); MEAN CORPUSCULAR HGB CONC 31.6 g/dl (32.0-36.5); MEAN CORPUSCULAR VOLUME 81.3 fl (80.0-96.0); MONO # 0.6 10^3/uL (0.0-0.8); MONO % 10.7 % (2.0-8.0); NEUTROPHILS % 56.1 % (36.0-66.0); PLATELET COUNT, AUTOMATED 235 10^3/uL (150-450); RED BLOOD COUNT 4.55 10^6/uL (4.00-5.40); WHITE BLOOD COUNT 5.3 10^3/uL (4.0-10.0)
[2022-04-27 15:08] LABS: ALBUMIN 4.2 GM/DL (3.2-5.2); ALT/SGPT 19 U/L (12-78); BILIRUBIN,TOTAL 0.3 MG/DL (0.2-1.0); BLOOD UREA NITROGEN 10 MG/DL (7-18); CALCIUM LEVEL 9.6 MG/DL (8.5-10.1); CARBON DIOXIDE LEVEL 27 MEQ/L (21-32); CHLORIDE LEVEL 105 MEQ/L (98-107); CREATININE FOR GFR 0.73 MG/DL (0.55-1.30); FERRITIN 11 NG/ML (8-252); GLOMERULAR FILTRATION RATE > 60.0 (>51); GLUCOSE, FASTING 94 MG/DL (70-100); IRON (FE) 40 UG/DL (50-170); MAGNESIUM LEVEL 1.9 MG/DL (1.8-2.4); PHOSPHORUS LEVEL 4.1 MG/DL (2.5-4.9); POTASSIUM SERUM 3.9 MEQ/L (3.5-5.1); SODIUM LEVEL 141 MEQ/L (136-145); TOTAL PROTEIN 7.6 GM/DL (6.4-8.2)
[2022-04-27 15:33] LABS: TOTAL 25(OH) VITAMIN D 24.2 NG/ML (30.0-100.0); VITAMIN B12 LEVEL 312 PG/ML (247-911)
== END ==
LOC: M WUC 13:15
PROVIDERS: ATTEND Surgery
DX: K91.2 Postsurgical malabsorption, not elsewhere classified (principal); E55.9 Vitamin D deficiency, unspecified; Z98.84 Bariatric surgery status

== ENCOUNTER → 2022-11-08 | Outpatient (REF) | payer BC, OTHER ==
[~2022-11-08] MED LIST changes: -MAXA10TA14 PO; +RIZA10TA64 PO
== END ==
LOC: M SFHCDERM 11:54
PROVIDERS: ATTEND Nurse Practitioner Family
DX: D22.39 Melanocytic nevi of other parts of face (principal)

== ENCOUNTER → 2023-06-07 | Outpatient (REF) | payer OTHER, BC | LOC: M SFHCDERM 15:53 | PROVIDERS: ATTEND Nurse Practitioner Family | DX: Z53.9 Procedure and treatment not carried out, unspecified reason (principal) ==

== ENCOUNTER → 2023-06-07 | Outpatient (CLI) | payer OTHER, BC ==
[2023-06-07 17:01] LABS: BASO # 0.1 10^3/uL (0.0-0.2); BASO % 0.8 % (0.0-1.0); EOS # 0.1 10^3/uL (0.0-0.5); EOS % 0.7 % (0.0-3.0); HEMATOCRIT 42.1 % (36.0-47.0); HEMOGLOBIN 13.8 g/dl (12.0-15.5); LYMPH # 2.7 10^3/uL (1.5-5.0); LYMPH % 37.1 % (24.0-44.0); MEAN CORPUSCULAR HGB CONC 32.8 g/dl (32.0-36.5); MEAN CORPUSCULAR VOLUME 91.5 fl (80.0-96.0); MONO # 0.4 10^3/uL (0.0-0.8); MONO % 5.1 % (2.0-8.0); NEUTROPHILS # 4.1 10^3/uL (1.5-8.5); NEUTROPHILS % 56.2 % (36.0-66.0); PLATELET COUNT, AUTOMATED 227 10^3/uL (150-450); WHITE BLOOD COUNT 7.3 10^3/uL (4.0-10.0)
[2023-06-07 17:24] LABS: ALBUMIN 3.9 G/DL (3.2-5.2); ALKALINE PHOSPHATASE 59 U/L (46-116); ALT/SGPT 31 U/L (7.0-40); AST/SGOT 16 U/L (<34); BILIRUBIN,TOTAL 0.3 MG/DL (0.3-1.2); BLOOD UREA NITROGEN 9 MG/DL (9-23); CALCIUM LEVEL 9.5 MG/DL (8.5-10.1); CARBON DIOXIDE LEVEL 30 MMOL/L (20-31); CHLORIDE LEVEL 102 MMOL/L (98-107); CREATININE FOR GFR 0.62 MG/DL (0.55-1.30); GLOMERULAR FILTRATION RATE > 60.0 (>51); GLUCOSE, FASTING 85 MG/DL (60-100); POTASSIUM SERUM 4.6 MMOL/L (3.5-5.1); SODIUM LEVEL 138 MMOL/L (136-145); TOTAL PROTEIN 6.8 G/DL (5.7-8.2)
[2023-06-07 17:55] LABS: HIV 1&2 SCREEN NEGATIVE (NEGATIVE)
[2023-06-07 18:04] LABS: HEPATITIS B CORE ANTIBODY IGM NEGATIVE (NEGATIVE); HEPATITIS C VIRUS ABY INDEX 0.18 INDEX (<0.8)
== END ==
LOC: M LAB 15:54
PROVIDERS: ATTEND Nurse Practitioner Family
DX: L40.8 Other psoriasis (principal)

== ENCOUNTER → 2023-08-01 | Outpatient (REF) | payer OTHER, BC ==
[~2023-08-01] MED LIST changes: +MECL-209 PO; -MECL1TAB31 PO
== END ==
LOC: M SFHCDERM 18:14
PROVIDERS: ATTEND Nurse Practitioner Family
DX: R21 Rash and other nonspecific skin eruption (principal)

== ENCOUNTER → 2023-11-07 | Outpatient (CLI) | payer BC ==
[2023-11-07 10:45] LABS: BASO # 0.1 10^3/uL (0.0-0.2); BASO % 0.8 % (0.0-1.0); EOS # 0.1 10^3/uL (0.0-0.5); EOS % 1.3 % (0.0-3.0); HEMATOCRIT 44.1 % (36.0-47.0); HEMOGLOBIN 14.7 g/dl (12.0-15.5); LYMPH # 2.6 10^3/uL (1.5-5.0); MEAN CORPUSCULAR HEMOGLOBIN 30.4 pg (27.0-33.0); MEAN CORPUSCULAR HGB CONC 33.3 g/dl (32.0-36.5); MEAN CORPUSCULAR VOLUME 91.1 fl (80.0-96.0); MONO # 0.4 10^3/uL (0.0-0.8); MONO % 5.9 % (2.0-8.0); NEUTROPHILS % 49.8 % (36.0-66.0); PLATELET COUNT, AUTOMATED 248 10^3/uL (150-450); RED BLOOD COUNT 4.84 10^6/uL (4.00-5.40); WHITE BLOOD COUNT 6.1 10^3/uL (4.0-10.0)
[2023-11-07 11:12] LABS: PERCENT SATURATION 27.9 % (13.2-45.0)
== END ==
LOC: M LAB 10:19
PROVIDERS: ATTEND Nurse Practitioner Family
DX: E61.1 Iron deficiency (principal)

== ENCOUNTER → 2024-05-07 | Outpatient (REF) | payer BC ==
[2024-05-07 19:16] LABS: BASO % 0.6 % (0.0-1.0); EOS # 0.1 10^3/uL (0.0-0.5); HEMOGLOBIN 14.1 g/dl (12.0-15.5); LYMPH # 2.7 10^3/uL (1.5-5.0); LYMPH % 39.6 % (24.0-44.0); MEAN CORPUSCULAR HEMOGLOBIN 29.5 pg (27.0-33.0); MEAN CORPUSCULAR VOLUME 92.1 fl (80.0-96.0); MONO # 0.5 10^3/uL (0.0-0.8); MONO % 6.7 % (2.0-8.0); NEUTROPHILS # 3.5 10^3/uL (1.5-8.5); PLATELET COUNT, AUTOMATED 259 10^3/uL (150-450); RED BLOOD COUNT 4.78 10^6/uL (4.00-5.40); WHITE BLOOD COUNT 6.7 10^3/uL (4.0-10.0)
[2024-05-07 19:40] LABS: TOTAL IRON BINDING CAPACITY 363 UG/DL (250-425)
[2024-05-07 19:41] LABS: ALBUMIN 3.9 G/DL (3.2-5.2); ALKALINE PHOSPHATASE 68 U/L (46-116); ALT/SGPT 38 U/L (7.0-40); AST/SGOT 22 U/L (<34); BILIRUBIN,TOTAL 0.4 MG/DL (0.3-1.2); BLOOD UREA NITROGEN 11 MG/DL (9-23); CALCIUM LEVEL 9.3 MG/DL (8.5-10.1); CARBON DIOXIDE LEVEL 30 MMOL/L (20-31); CHLORIDE LEVEL 105 MMOL/L (98-107); CHOLESTEROL LEVEL 191 MG/DL (<200); CHOLESTEROL RISK RATIO 2.66 (<5); CREATININE FOR GFR 0.62 MG/DL (0.55-1.30); GLOMERULAR FILTRATION RATE > 60.0 (>51); GLUCOSE, FASTING 88 MG/DL (60-100); HDL CHOLESTEROL 71.7 MG/DL (>40); IRON (FE) 60 UG/DL (50-170); LDL CHOLESTEROL 95.5 MG/DL (<100); MAGNESIUM LEVEL 2.1 MG/DL (1.8-2.4); NON-HDL-C 119.3 MG/DL; PERCENT SATURATION 16.5 % (13.2-45.0); POTASSIUM SERUM 4.5 MMOL/L (3.5-5.1); SODIUM LEVEL 140 MMOL/L (136-145); TOTAL PROTEIN 6.8 G/DL (5.7-8.2); TRIGLYCERIDES LEVEL 119 MG/DL (<150)
[2024-05-07 19:47] LABS: FREE T4 1.01 NG/DL (0.89-1.76); THYROID STIMULATING HORMONE 0.928 uIU/ML (0.55-4.78)
[2024-05-07 19:49] LABS: TOTAL 25(OH) VITAMIN D 35.3 NG/ML (20.0-100.0); VITAMIN B12 LEVEL 573 PG/ML (211-911)
== END ==
LOC: M SFHCCLAY 10:10
PROVIDERS: ATTEND Nurse Practitioner Family
DX: L40.8 Other psoriasis (principal); K58.9 Irritable bowel syndrome, unspecified; M62.08 Separation of muscle (nontraumatic), other site; K21.9 Gastro-esophageal reflux disease without esophagitis; I10 Essential (primary) hypertension; E55.9 Vitamin D deficiency, unspecified; E61.1 Iron deficiency; Z78.0 Asymptomatic menopausal state; L71.9 Rosacea, unspecified; E66.9 Obesity, unspecified; Z68.39 Body mass index [BMI] 39.0-39.9, adult; R60.9 Edema, unspecified; G44.209 Tension-type headache, unspecified, not intractable; M54.2 Cervicalgia; M48.02 Spinal stenosis, cervical region; C44.92 Squamous cell carcinoma of skin, unspecified; Z98.84 Bariatric surgery status

== ENCOUNTER → 2024-08-13 | Outpatient (CLI) | payer BC | LOC: M WUC 12:41 | PROVIDERS: ATTEND Nurse Practitioner Family | DX: M25.562 Pain in left knee (principal); M54.50 Low back pain, unspecified ==

== ENCOUNTER → 2024-12-10 | Outpatient (CLI) | payer BC ==
[~2024-12-10] MED LIST changes: -CYCL5TAB PO; +CYCL5TAB4 PO; +HYOS0.3723 PO; -HYOS0.374 PO
== END ==
LOC: M WHC 08:33
PROVIDERS: ATTEND Nurse Practitioner Family
DX: Z12.31 Encounter for screening mammogram for malignant neoplasm of breast (principal)

== ENCOUNTER → 2024-12-31 | Outpatient (CLI) | payer BC ==
[2024-12-31 14:31] LABS: BLOOD UREA NITROGEN 9 MG/DL (9-23); CALCIUM LEVEL 8.6 MG/DL (8.5-10.1); CARBON DIOXIDE LEVEL 26 MMOL/L (20-31); CHLORIDE LEVEL 107 MMOL/L (98-107); CREATININE FOR GFR 0.67 MG/DL (0.55-1.30); GLOMERULAR FILTRATION RATE > 60.0 (>51); GLUCOSE, FASTING 97 MG/DL (60-100); SODIUM LEVEL 142 MMOL/L (136-145)
[2025-01-02 10:47] LABS: QuantiFERON-TB Gold Plus NEGATIVE (NEGATIVE)
== END ==
LOC: M WUC 09:31
PROVIDERS: ATTEND Nurse Practitioner Family
DX: L40.8 Other psoriasis (principal)

== ENCOUNTER → 2025-05-20 | Outpatient (CLI) | payer BC | LOC: M CLY 15:11 | PROVIDERS: ATTEND Nurse Practitioner Family | DX: M79.641 Pain in right hand (principal); M79.642 Pain in left hand ==

== ENCOUNTER → 2025-08-05 | Outpatient (REF) | payer BC ==
[2025-08-05 18:28] LABS: BASO # 0.1 10^3/uL (0.0-0.2); BASO % 0.7 % (0.0-1.0); EOS # 0.1 10^3/uL (0.0-0.5); EOS % 1.5 % (0.0-3.0); LYMPH # 3.0 10^3/uL (1.5-5.0); LYMPH % 41.8 % (24.0-44.0); MONO # 0.5 10^3/uL (0.0-0.8); MONO % 6.8 % (2.0-8.0); NEUTROPHILS # 3.5 10^3/uL (1.5-8.5); NEUTROPHILS % 49.1 % (36.0-66.0); PLATELET COUNT, AUTOMATED 264 10^3/uL (150-450)
[2025-08-05 18:34] LABS: ALT/SGPT 20 U/L (7.0-40); AST/SGOT 15 U/L (<34); C REACTIVE PROTEIN QUANTITATIV < 0.50 MG/DL (<1.0); CALCIUM LEVEL 8.7 MG/DL (8.5-10.1); CARBON DIOXIDE LEVEL 30 MMOL/L (20-31); CHLORIDE LEVEL 107 MMOL/L (98-107); CREATININE FOR GFR 0.61 MG/DL (0.55-1.30); GLOMERULAR FILTRATION RATE > 90.0 (>51); POTASSIUM SERUM 3.7 MMOL/L (3.5-5.1); SODIUM LEVEL 145 MMOL/L (136-145)
[2025-08-05 18:35] LABS: RHEUMATOID FACTOR QUANT < 3.5 IU/ML (<14)
[2025-08-05 18:38] LABS: ERYTHROCYTE SEDIMENTATION RATE 8 mm/hr (0-30)
[2025-08-08 02:52] LABS: SSA SJOGRENS A <1.0 NEG AI (<1.0 NEG); SSB SJOGRENS B <1.0 NEG AI (<1.0 NEG)
== END ==
LOC: M SFHCCLAY 13:27
PROVIDERS: ATTEND Nurse Practitioner Family
DX: M79.641 Pain in right hand (principal); M79.642 Pain in left hand